=== PATIENT | male | born 1955 | race Caucasian/White ===

== ENCOUNTER 2017-03-04 23:04 | Inpatient (IN) ==
--- NOTE | 2017-03-04 23:11 | Emergency Department Note ---
Disposition Clinical Impression: Bradycardia Syncope Qualifiers: Syncope type: unspecified Qualified Code(s): R55 - Syncope and collapse Disposition: Admitted As Inpatient Condition: Undetermined Referrals: NO,PCP [Non-Partnered Physician] - Forms: ED Satisfaction Letter Time of Disposition: 00:52 Syncope HPI - General Chief Complaint: ED Syncope Stated Complaint: passed out/weak Time Seen by Provider: 03/04/17 23:07 Source: patient Mode of arrival: EMS Limitations: no limitations Nursing Notes Reviewed: Yes Vital Signs Reviewed: Yes - History of Present Illness HPI Narrative: 61-year-old male with history of psychiatric disorders on Haldol and trazodone, hypertension, arrives [facility] emergency department after having 2 syncopal episodes this evening. The patient states that he recently was started back on his Haldol as well as his trazodone and states that while in the bathroom this evening he was syncopal episode. The patient denies any prodromal symptoms associated with it. The patient denied any injury either and is not complaining of any pain. EMS was called at that time by the patient' s significant other who arrived with the patient forward and oriented. The patient was ambulated to the living room where he had another syncopal episode. The EMS stated that he immediately went out is lying on the ground and immediately woke back up without any deficits. The patient was alert and oriented 3 immediately after waking up. The patient denies any chest pain, difficulty breathing, unilateral weakness, numbness, paresthesias, fever, chills , abdominal pain. He denies any previous history of syncope. The patient is pale appearing. Pt Subjective Complaint: loss of consciousness Onset (ago): Just [employer]PUT[employer]AME [employer] Duration: second(s) Prodromal Symptoms: none Witnessed: yes - by other (Spouse) Context: at rest Injuries Sustained Associated with Event: none Current Symptoms: none, back to baseline History: none Treatments prior to arrival: IV fluids Associated trauma secondary to event: No - Related Data Home Medications Medication Instructions Recorded Confirmed Benztropine Mesylate 2 mg PO DAILY 03/03/16 03/03/16 Haloperidol 10 mg PO DAILY 03/03/16 03/03/16 Levothyroxine [Synthroid] 25 mcg PO DAILY 03/03/16 03/03/16 Simvastatin [Zocor] 20 mg PO HS 03/03/16 03/03/16 lamoTRIgine [Lamictal] 100 mg PO HS 03/03/16 03/03/16 Omeprazole 03/31/16 Omeprazole [PriLOSEC] 20 mg PO DAILY 03/31/16 03/31/16 Allergies Allergy/AdvReac Type Severity Reaction Status Date / Time No Known Allergies Allergy Verified 03/04/17 09:07 All systems ED: reviewed and negative except as stated. Constitutional: Denies: fever, chills, weakness, weight change Cardiovascular: Denies: chest pain, palpitations, dyspnea on exertion, edema, syncope Respiratory: Denies: cough, dyspnea, wheezes, hemoptysis, stridor Gastrointestinal: Denies: abdominal pain, nausea, vomiting, diarrhea, constipation, hematemesis, melena, hematochezia Genitourinary: Denies: urgency, dysuria, frequency, hematuria Musculoskeletal: Denies: back pain, neck pain, arthralgia, myalgia Integumentary: Denies: rash, abrasion, lesions Neurological: Denies: headache, weakness, numbness, paresthesias, confusion, abnormal gait, vertigo Past Medical History - Past Medical History Attestation: Yes The following information was validated with the patient. Source: patient Medical history: Reports: arthritis, GERD, hyperlipidemia Surgical history: Reports: herniorrhaphy Psychiatric history: Reports: anxiety, depression, other - Social History Smoking Status: Never smoker Smokeless Tobacco Status: No Alcohol use: Reports: none Drug use: Reports: none Physical Exam - General Limitations: no limitations General appearance: alert, in no apparent distress, other (Mildly pale) - Head Head exam: atraumatic, normocephalic, normal inspection - Eye Eye exam: Present: normal appearance, PERRL, EOMI - ENT ENT exam: normal exam, normal oropharynx, mucous membranes moist - Neck Neck exam: Present: normal inspection, full ROM, trachea midline - Chest Chest inspection: Present: normal inspection, symmetric chest wall rise - Respiratory Respiratory exam: Present: normal lung sounds bilaterally - Cardiovascular Cardiovascular exam: Present: normal rhythm, bradycardia, normal heart sounds - Abdominal Exam Abdominal exam: Present: soft, Non-Tender. Absent: tenderness, distention, guarding, rebound, rigidity - Extremities Exam Extremities exam: Present: normal inspection, full ROM. Absent: tenderness, pedal edema - Neurological Exam Neurological exam: Present: alert, oriented X3 - Skin Skin exam: Present: warm, dry, intact, normal color, pallor Course - Consultations Consultation #1: Spoke with Dr. Levin who did not feel as though the patient met criteria for transvenous pacing. Time: 01:06 Vital Signs Temperature 97 F L 03/04/17 23:06 Pulse Rate 46 03/04/17 23:06 Respiratory Rate 18 03/04/17 23:06 Blood Pressure 115/60 03/04/17 23:06 O2 Sat by Pulse Oximetry 98 03/04/17 23:06 Temperature 97 F L 03/04/17 23:06 Pulse Rate 50 03/05/17 00:29 Respiratory Rate 18 03/05/17 00:29 Blood Pressure 122/86 03/05/17 00:29 O2 Sat by Pulse Oximetry 98 03/05/17 00:29 Oxygen Delivery Oxygen Delivery Room Air Syncope - MDM Narrative Medical decision making narrative: Patient symptomatically bradycardia. Since arrival to the emergency Department heart rate is been into the mid 50s. The patient's nausea is currently controlled at this time. Workup is otherwise unremarkable. The patient has been on his blood pressure medicine which she is unable to name for years and states that he has had no previous problems like this in the past. The patient states he is resting comfortably at this time after receiving Zofran. EKG demonstrates no acute findings other than sinus bradycardia. The patient's troponin is negative. Head CT is negative. We will admit the patient to the hospital for symptomatically bradycardia as well as syncope. The patient was accepted by Dr. Clay. - Lab Data Lab results reviewed: Yes I reviewed the patient's lab results. Result diagrams: 03/04/17 23:13 03/04/17 23:13 Lab Results 03/04/17 03/04/17 03/04/17 Range/Units 23:13 23:13 23:13 WBC 6.0 (4.3-11.1) K/mcL RBC 4.18 L (4.19-5.50) M/mcL Hgb 13.2 D (12.9-16.9) g/dL Hct 38.6 (37.5-50.1) % MCV 92.3 (83.0-100.0) fL MCH 31.6 (28.0-33.3) pg MCHC 34.2 (31.6-35.5) g/dL RDW 13.1 (11.5-14.5) % Plt Count 222 (140-400) K/mcL MPV 10.0 (9.4-12.4) fL Immature Gran % 0.8 (0-4) % Seg Neutrophils % 57.2 % Lymphocytes % 28.4 % Monocytes % 11.4 % Eosinophils % 1.7 % Basophils % 0.5 % Neutrophils # 3.4 (1.6-8.9) K/mcL Lymphocytes # 1.7 (0.6-4.6) K/mcL Monocytes # 0.7 (0.0-1.3) K/mcL Eosinophils # 0.1 (0.0-0.6) K/mcL Basophils # 0.0 (0.0-0.2) K/mcL Immature Plt Fraction 4.0 (1.1-6.1) % Sodium 133 L (136-145) mEq/L Potassium 3.6 (3.5-4.5) mEq/L Chloride 102 (98-109) mEq/L Carbon Dioxide 21 (19-29) mEq/L BUN 16 (8-26) mg/dL Creatinine 1.08 (0.72-1.25) mg/dL Est GFR ( Amer) > 60 (> 60) Est GFR (Non-Af Amer) > 60 (> 60) BUN/Creatinine Ratio 15 (6-26) Glucose 144 H (70-99) mg/dL Calculated Osmolality 280 (280-300) Calcium 8.7 (8.6-10.8) mg/dL Troponin I 0.01 (0-0.03) ng/mL - Radiology Data Radiology results reviewed: Yes I reviewed the patient's radiology results. - EKG Data EKG attestation: Yes I reviewed and interpreted this EKG. EKG results narrative: Heart rate 41.3 minute. IL interval 206 ms. QTc 42 ms. Normal axis. Sinus bradycardia. No ST elevation or ST depression noted. No sinus bradycardia from EKG from 03/31/2016. No other acute changes noted. Attestation Statement - Attestation Attestation: I reviewed the resident's plan of care. In summary this is a 61-year-old male who actually is on several psychiatric medications and came to the emergency department earlier today with concern for needing refills. Ultimately this evening he had a syncopal events. He had no chest pain or weakness before or after the event. He had no focal neurological deficit on arrival. He was hemodynamically stable on arrival. He was found to have sinus bradycardia which is possibly contributing to his underlying weakness. He remains just stable heart rates in the 40s. I would proceed with admission at this point for both evaluation of syncope as well as evaluation of bradycardia. We will continue monitoring with telemetry. Biomarkers are normal. Chest x-ray shows no acute findings. There are no metabolic derangements identified. EKG intervals were checked and were normal. He denies ingestion or drug use. Stable at time of admission, proceed with admission to telemetry.
[2017-03-04 23:25] LABS: Basophils % 0.5 %; Eosinophils # 0.1 K/mcL (0.0-0.6); Eosinophils % 1.7 %; Hematocrit 38.6 % (37.5-50.1); Hemoglobin 13.2 g/dL (12.9-16.9); Immature Granulocytes % 0.8 % (0-4); Lymphocytes # 1.7 K/mcL (0.6-4.6); Lymphocytes % 28.4 %; Mean Corpuscular HGB Conc 34.2 g/dL (31.6-35.5); Mean Corpuscular Hemoglobin 31.6 pg (28.0-33.3); Mean Corpuscular Volume 92.3 fL (83.0-100.0); Monocytes # 0.7 K/mcL (0.0-1.3); Monocytes % 11.4 %; Neutrophils # 3.4 K/mcL (1.6-8.9); Platelet Count 222 K/mcL (140-400); Red Blood Count 4.18 M/mcL (4.19-5.50); Red Cell Distribution Width 13.1 % (11.5-14.5); Segmented Neutrophils % 57.2 %
[2017-03-04] MEDS ORDERED: Ondansetron 4 MG/2 ML VIAL IVP ONE (23:36)
[2017-03-04 23:38] LABS: BUN/Creatinine Ratio 15 (6-26); Blood Urea Nitrogen 16 mg/dL (8-26); Calcium 8.7 mg/dL (8.6-10.8); Carbon Dioxide 21 mEq/L (19-29); Chloride 102 mEq/L (98-109); Glucose 144 mg/dL (70-99); Osmolality,Calculated 280 (280-300); Potassium 3.6 mEq/L (3.5-4.5); Sodium 133 mEq/L (136-145); eGFR For African Americans > 60 (> 60); eGFR For Non-African Americans > 60 (> 60)
[2017-03-05] MEDS ORDERED: 0.9 % Sodium Chloride 1,000 ML IVC ONE (00:01)
[2017-03-05] MEDS ORDERED: Naloxone 0.4 MG/ML INJ IVP PRN (01:58)
--- NOTE | 2017-03-05 02:13 | Internal Med History&Physical ---
Date of Encounter: 03/05/17 Time of Encounter: 01:40 Assessment and Plan (1) Bradycardia Current visit: Yes Status: Acute Symptomatic Bradycardia Currently HR between 50s-60s Asymptomatic at this time no recurrent syncopal episodes reported since hospitalization f/u 2D echo, carotid doppler cardiology evaluation requested continue tele monitoring (2) Syncope Current visit: Yes Status: Acute Likely secondary to symptomatic bradycardia will continue to monitor plan as listed above Qualifiers: Syncope type: unspecified Qualified Code(s): R55 - Syncope and collapse (3) Thyroid disease Current visit: Yes Status: Chronic continue home medications after verification f/u thyroid studies (4) HLD (hyperlipidemia) Current visit: Yes Status: Chronic Qualifiers: Hyperlipidemia type: unspecified Qualified Code(s): E78.5 - Hyperlipidemia , unspecified (5) Schizophrenia Current visit: No Status: Chronic resume home medications after verification Qualifiers: Schizophrenia type: paranoid schizophrenia Qualified Code(s): F20.0 - Paranoid schizophrenia (6) DVT prophylaxis Current visit: Yes Status: Acute heparin SQ Internal Medicine - H&P: HPI Chief complaint: syncope Admitted From: Home Plans for Post Hospital Care: Home History of present illness: Mr. Chavez is a 61 year old male with PMH of hyperlipidemia, thyroid disease , Paranoid schizophrenia who is brought to the ER s/p syncopal episode. Patient is seen and examined with family present at bedside. Patient is AAO x 3, however given his psychiatrical illness, information was verified with the family. As per family, patient was in his usual state of health and got up to the bathroom and had a syncopal episode with him falling to the ground. The found him on the floor and he was not able to wake up due to which she called EMS. EMS came and lifted the patient to the chair during which patient had another syncopal episode. He was also noted to have a HR of 40 at the time. EKG from a year ago reported LVH with NSR with 66 bpm. As per , patient has history of syncopal episodes in the past but nothing lasting as long as they did this time. In the ER patient's EKG showed sinus bradycardia with 41bpm. He is currently asymptomatic and resting comfortably in bed. Denies any headache, chest pain, dizziness, sob, abd pain, n/v, fever, or chills. As per , patient has been noncompliant with his antipsychotic medications due to which his behavior has been not at his usual baseline. Past Med Surg Social Fam HX - Past Medical History Medical history: arthritis, GERD, hyperlipidemia Psychiatric history: anxiety, depression, other - Past Surgical History Surgical History: herniorrhaphy - Social History Smoking Status: Never smoker Smokeless Tobacco Status: No Alcohol use: none Drug use: none Internal Medicine - H&P: Meds Benztropine Mesylate 2 mg PO DAILY 03/03/16 [History] Haloperidol 10 mg PO DAILY 03/03/16 [History] Levothyroxine [Synthroid] 25 mcg PO DAILY 03/03/16 [History] Simvastatin [Zocor] 20 mg PO HS 03/03/16 [History] lamoTRIgine [Lamictal] 100 mg PO HS 03/03/16 [History] Omeprazole 03/31/16 [History] Omeprazole [PriLOSEC] 20 mg PO DAILY 03/31/16 [History] Allergies No Known Allergies Allergy (Verified 03/04/17 09:07) All Systems PM: A 10-system review of systems was performed and is negative for pertinent findings except as documented above in the HPI. - Constitutional Constitutional: as per HPI - Constitutional Vitals: Temp Pulse Resp BP Pulse Ox 0 F L 50 18 122/59 98 03/05/17 01:20 03/05/17 00:29 03/05/17 01:20 03/05/17 01:20 03/05/17 00:29 General appearance: Present: cooperative, A&O X 3, no acute distress, answers questions appropriately - Head Head exam: Present: atraumatic, normocephalic - Eye Eye exam: Present: normal appearance, conjuntiva pink, sclera anicteric - Respiratory Respiratory exam: Present: CTAB. Absent: accessory muscle use, rales, rhonchi, wheezes - Cardiovascular Cardiovascular exam: Present: bradycardia, +S1, +S2. Absent: diastolic murmur, systolic murmur - GI/Abdominal GI/Abdominal exam: Present: normal bowel sounds, soft, no peritoneal signs. Absent: distended, tenderness - Extremities Exam Extremities exam: Present: warm, radial pulses palpable and symetrical. Absent : calf tenderness, cyanotic, pedal edema - Neurological Exam Neurological exam: Present: alert, oriented X3 - Psychiatric Psychiatric exam: Present: normal affect, normal mood Internal Med - H&P Results - Labs CBC & Chem 7: 03/04/17 23:13 03/04/17 23:13
[2017-03-05 03:40] LABS: Hemoglobin A1C 5.2 %
[2017-03-05 03:45] LABS: Basophils % 0.4 %; Eosinophils % 0.1 %; Hematocrit 39.9 % (37.5-50.1); Hemoglobin 13.1 g/dL (12.9-16.9); Immature Granulocytes % 1.4 % (0-4); Lymphocytes # 0.8 K/mcL (0.6-4.6); Lymphocytes % 11.3 %; Mean Corpuscular HGB Conc 32.8 g/dL (31.6-35.5); Mean Corpuscular Hemoglobin 30.6 pg (28.0-33.3); Mean Corpuscular Volume 93.2 fL (83.0-100.0); Mean Platelet Volume 10.1 fL (9.4-12.4); Monocytes # 0.5 K/mcL (0.0-1.3); Monocytes % 6.4 %; Neutrophils # 5.7 K/mcL (1.6-8.9); Platelet Count 232 K/mcL (140-400); Red Blood Count 4.28 M/mcL (4.19-5.50); Red Cell Distribution Width 12.9 % (11.5-14.5); Segmented Neutrophils % 80.4 %
[2017-03-05 03:50] LABS: BUN/Creatinine Ratio 15 (6-26); Blood Urea Nitrogen 14 mg/dL (8-26); Calcium 8.4 mg/dL (8.6-10.8); Carbon Dioxide 23 mEq/L (19-29); Chloride 107 mEq/L (98-109); Chol/HDL Ratio 3.9 (0-4.9); Cholesterol 116 mg/dL (< 200); Glucose 117 mg/dL (70-99); HDL Cholesterol 30 mg/dL (40-59); LDL Cholesterol,Calculated 75 mg/dL (0-99); Magnesium 1.8 mg/dL (1.6-2.6); Osmolality,Calculated 284 (280-300); Phosphorous 2.5 mg/dL (2.3-4.7); Potassium 4.5 mEq/L (3.5-4.5); Sodium 136 mEq/L (136-145); Triglycerides 56 mg/dL (< 150); eGFR For African Americans > 60 (> 60); eGFR For Non-African Americans > 60 (> 60)
[2017-03-05 04:13] LABS: Thyroid Stimulating Hormone 0.667 mcIU/mL (0.350-4.840)
[2017-03-05] MEDS: *HR* Heparin 5,000 UNIT/ML VIAL SQ SCH ×3 (06:11→20:57)
[2017-03-05] MEDS: Levothyroxine 25 MCG TABLET PO SCH (08:46)
--- NOTE | 2017-03-05 09:20 | Cardiology Consult Note ---
Date of Encounter: 03/05/17 Time of Encounter: 09:17 Assessment and Plan (1) Syncope Current Visit: Yes Status: Acute Syncopal episode x 2 yesterday evening. HR found to be 41 on presentation, since improved. 24 hr tele AVG HR 57 with lowest HR 46 during nocturnal hours. Echo and carotid dopplers pending. Pt currently asymptomatic. Recommend checking orthostatic vitals. BP has been stable. If no significant findings on echo, anticipate sign off. Avoid AV rambo blockers. Pt was not on any at home. Qualifiers: Syncope type: unspecified Qualified Code(s): R55 - Syncope and collapse (2) Bradycardia Current Visit: Yes Status: Acute As above, HR 41 on presentation, since improved. 24 hour tele AVG HR 57, lowest 46. Mild bradycardia. No PPM warranted at this time. Echo pending. K 4.5, Mag 1.6, TSH 0.667. Discussion w patient/family: The assessment and plan as outlined above was discussed with the patient and/or family members who expressed understanding and agreement. All questions were answered. Thank you for involving us in the care of your patient. Please call with any questions. I will discuss all the above with Dr. Levin and make changes as necessary. History of Present Illness Consult date: 03/05/17 Requesting physician: Ban King Consult reason: syncope, bradycardia Chief complaint: syncope History of present illness: Mr. Chavez is a 61 year old male with PMH of hyperlipidemia, thyroid disease , Paranoid schizophrenia who was brought to the ER s/p syncopal episode. No family are currently at bedside and it is difficult to obtain information from pt. Information obtained from hospitalist H&P. As per report, patient was in his usual state of health and got up to the bathroom and had a syncopal episode with him falling to the ground. The found him on the floor and he was not able to wake up due to which she called EMS. EMS came and lifted the patient to the chair during which patient had another syncopal episode. He was also noted to have a HR of 40 at the time. In the ER patient's EKG showed sinus bradycardia with 41bpm. He is currently asymptomatic and resting comfortably in bed. Denies any headache, chest pain, dizziness, sob, abd pain, n/v, fever, or chills. Per report, patient has been noncompliant with his antipsychotic medications due to which his behavior has been not at his usual baseline. 24hr tele AVG HR 57 with lowest HR on tele 46 during nocturnal hours. No significant pauses. Past Med Surg Social Fam HX - Past Medical History Medical history: arthritis, GERD, hyperlipidemia Psychiatric history: anxiety, depression, other - Past Surgical History Surgical History: herniorrhaphy - Social History Smoking Status: Never smoker Smokeless Tobacco Status: No Alcohol use: none Drug use: none - Family History Father Hx Family Cardiac Disorders: Yes (mi) Medications and Allergies Haloperidol 10 mg PO HS 03/03/16 [History] Levothyroxine [Synthroid] 25 mcg PO DAILY 03/03/16 [History] Simvastatin [Zocor] 20 mg PO HS 03/03/16 [History] Omeprazole [PriLOSEC] 20 mg PO DAILY 03/31/16 [History] Donepezil HCl [Aricept] 10 mg PO HS 03/05/17 [History] Lisinopril [Zestril] 5 mg PO DAILY 03/05/17 [History] Trazodone HCl 300 mg PO HS 03/05/17 [History] Allergies No Known Allergies Allergy (Verified 03/04/17 09:07) All Systems Review: A 10-system review of systems was performed and is negative for pertinent findings except as documented above in the HPI. - Cardiovascular Cardiovascular: as per HPI, syncope Physical Examination Vital Signs, Last 4 Hours Temp Pulse Resp BP Pulse Ox 03/05/17 07:10 97.9 F 61 15 109/70 97 Vital Signs Temp Pulse Resp BP Pulse Ox 03/05/17 07:10 97.9 F 61 15 109/70 97 03/05/17 01:45 98.6 F 66 16 121/58 93 03/05/17 01:20 0 F L 18 122/59 03/05/17 00:29 50 18 122/86 98 03/04/17 23:53 50 18 123/66 100 03/04/17 23:06 97 F L 46 18 115/60 98 Intake and Output 03/04/17 03/05/17 03/05/17 23:59 07:59 15:59 Intake Total 1000 / 1000 Output Total 925 / 925 Balance 75 / 75 Intake: IV Fluids 1000 / 1000 0.9 % Sodium Chloride 1, 1000 / 1000 000 ML @ 3750 mls/hr IVC .Q16M ONE Rx#:[id number] Output: Urine 925 / 925 Other: Weight 87.997 kg 87.09 kg Patient Weight 03/05/17 23:59 Weight 87.09 kg General: Conversant, No Apparent Distress HEENT: Atraumatic, Normocephaly, Mucus Membranes Moist Neck: No JVD, Normal carotid pulses Cardiac: Reg Rate and Rhythm, Normal S1 and S2, No Murmur Lungs: Normal Breath Sounds, No Wheeze, Rales, Rhonchi Neuro: Alert and responsive, No focal deficits noted Abdomen: Soft, Non-Tender Skin: No rashes noted on visualized skin Musculoskeletal: No Chest Wall Tenderness Extremities: No Clubbing, No Cyanosis, No Edema, Normal Pulses Results 03/05/17 03:09 03/05/17 03:09 Lab Results 03/05/17 03/05/17 03:09 03:09 WBC 7.1 Hgb 13.1 Hct 39.9 Plt Count 232 Sodium 136 Potassium 4.5 Chloride 107 Carbon Dioxide 23 BUN 14 Creatinine 0.94 Glucose 117 H Calcium 8.4 L Magnesium 1.8 TSH 0.667 Short CBC 03/05/17 03/04/17 Range/Units 03:09 23:13 WBC 7.1 6.0 (4.3-11.1) K/mcL Hgb 13.1 13.2 D (12.9-16.9) g/dL Hct 39.9 38.6 (37.5-50.1) % Plt Count 232 222 (140-400) K/mcL Neutrophils # 5.7 3.4 (1.6-8.9) K/mcL BMP 03/05/17 03/04/17 Range/Units 03:09 23:13 Sodium 136 133 L (136-145) mEq/L Potassium 4.5 3.6 (3.5-4.5) mEq/L Chloride 107 102 (98-109) mEq/L Carbon Dioxide 23 21 (19-29) mEq/L BUN 14 16 (8-26) mg/dL Creatinine 0.94 1.08 (0.72-1.25) mg/dL Glucose 117 H 144 H (70-99) mg/dL Calcium 8.4 L 8.7 (8.6-10.8) mg/dL Cardiac Enzymes 03/04/17 Range/Units 23:13 Troponin I 0.01 (0-0.03) ng/mL Impressions Chest X-Ray 03/04/17 23:07 IMPRESSION: No acute cardiopulmonary disease. D/ / Roma Abdalla MD / Roma Abdalla MD Interpreting Provider: Roma Abdalla MD Head CT 03/04/17 23:07 IMPRESSION: No acute intracranial abnormality. D/ : / 03/05/2017 07:10:33 Roma Abdalla MD / [facility] Interpreting Provider: Roma Abdalla MD Active Medications Donepezil HCl (Aricept) 10 mg PO HS [facility] Stop: 09/04/17 21:01 Haloperidol (Haldol) 10 mg PO HS [facility] Stop: 09/04/17 21:01 Heparin Sodium (Porcine) (Heparin) 5,000 unit SQ Q8HCO [facility] Stop: 09/04/17 06:01 Last Admin: 03/05/17 06:11 Dose: 5,000 unit Levothyroxine Sodium (Synthroid) 25 mcg PO DAILY@0630 [facility] Stop: 09/04/17 09:01 Last Admin: 03/05/17 08:46 Dose: 25 mcg Lisinopril (Zestril) 5 mg PO DAILY [facility] PRN Reason: Protocol Stop: 09/04/17 09:01 Last Admin: 03/05/17 08:45 Dose: 5 mg Naloxone HCl (Narcan) 0.4 mg IVP Q2MIN PRN PRN Reason: Opioid Reversal Stop: 09/04/17 01:59 Omeprazole (Prilosec) 20 mg PO DAILY@0630 [facility] PRN Reason: Protocol Stop: 09/04/17 09:01 Last Admin: 03/05/17 08:45 Dose: 20 mg Ondansetron HCl (Zofran) 4 mg IVP Q6HR PRN PRN Reason: Nausea And Vomiting Stop: 09/04/17 01:59 Simvastatin (Zocor) 20 mg PO HS [facility] PRN Reason: Protocol Stop: 09/04/17 21:01 Trazodone HCl (Trazodone) 300 mg PO HS [facility] Stop: 09/04/17 21:01 - Imaging and Cardiology Echo: pending - EKG Interpretation EKG results cardiology: personally reviewed (Sinus rich, rate 41), other (24 hr tele AVG HR 57, SR, lowest HR 46.) Consult Discharge Plan - Plan Referrals: Muna,Roger Ortiz MD [Primary Care Provider] -
[2017-03-05] MEDS: Ondansetron 4 MG/2 ML VIAL IVP PRN ×2 (12:50→18:00)
--- NOTE | 2017-03-05 15:33 | Event Note ---
Date of Encounter: 03/05/17 Time of Encounter: 10:30 Patient seen and examined. On examination, patient sitting upright in bed conversing with his . Patient stating he has not been eating for the past 2 weeks and his states that he only eats pudding. Patient's states that he has been off all of his psychiatric medications for the last 5 months secondary to losing his psychiatrist who left the practice to move on to another practice. His states that she tried to have his medications filled by the primary care provider when she desperately try to get him into new psychiatrist however his primary care provider refused and the patient has been off his medications for 5 months. Patient is now under the psychiatrist in [place] name Calvin Andersen and saw him on 03/03/17 and he was placed back on his medications. His medications have not been given enough time to work at this point however the patient had a syncopal episode that occurred approximately 15-20 minutes after he is taking 3 of his medications that help him sleep including Haldol. This was the first time his body had had these 3 medications at the same time in 5 months and likely precipitated the syncopal event. Chest x-ray negative. Head CT negative. Patient was noted to be bradycardic so cardiology was brought on board. Echocardiogram unremarkable with normal ejection fraction and no significant valvular issues. Cardiology has cleared him for outpatient follow-up. He is not on any beta blockers. Patient is very concerned at this time because he was incarcerated last week. He and his report that she had a bottle of bleach that she was taking down to the basement to help clean but the patient was very scared that the basement was not ventilated so he was trying to take the bleach away from her and at some point, the police that showed up and took the patient to [facility] where he stayed overnight. His states that he is not facing [facility] time and reassurance has been proffered. Overall, patient is alert and oriented 3 and quite calm. His mood and affect are stable. We will observe him overnight and continue his regular home medications including the 3 sedating medications that his psychiatrist put him back on. If he does well overnight, likely discharge tomorrow morning pending clinical outcomes. ITS Impressions Chest X-Ray 03/04/17 23:07 IMPRESSION: No acute cardiopulmonary disease. D/ / Roma Abdalla MD / Roma Abdalla MD Interpreting Provider: Roma Abdalla MD Head CT 03/04/17 23:07 IMPRESSION: No acute intracranial abnormality. D/ /05/2017 07:10:33 Roma Abdalla MD / [facility] Interpreting Provider: Roma Abdalla MD Echocardiogram impressions: Sinus bradycardia. Heart rate in the 50s. LVEF 60% . Normal LV chamber size, wall thickness and function. Mild left ventricular diastolic dysfunction. Mildly dilated right ventricle with normal-appearing function. No evidence of pulmonary hypertension. No significant valvular dysfunction.
--- NOTE | 2017-03-05 16:34 | Carotid Imaging Report ---
Carotid Duplex Patient Name:Markel Chavez Order Number:[id number] Procedure Date:03/05/2017 Date:1955ge:61 yrs Gender:Male Rt.BP:107 / 70 mmHgHeart Rate: Location:[facility] Room #: 3B43 Tube Winder:Amanda Lewis, ANGELICA Referring MD:Ban King MD shoe trimmer:Roger Toro MD Reading MD:Ayo Clark MD Primary Indications:Syncope and collapse Risk Factors Yes/No Hypercholesterolemia Yes Impressions: Findings: Bilateral carotid system is essentially normal. Recommendations: Preliminary noted in pt EMR. Findings Carotid Duplex: Right: The right proximal common carotid artery has a PSV of 104 cm/s and a EDV of 18 cm/s. The right mid common carotid artery has a PSV of 88 cm/s and a EDV of 19 cm/s. The right distal common carotid artery has a PSV of 87 cm/s and a EDV of 16 cm/s. The right bifurcation has a PSV of 71 cm/s and a EDV of 19 cm/s. The right proximal internal carotid artery has a PSV of 106 cm/s and a EDV of 20 cm/s. The right mid internal carotid artery has a PSV of 75 cm/s and a EDV of 28 cm/s. The right distal internal carotid artery has a PSV of 73 cm/s and a EDV of 27 cm/s. The right eca has a PSV of 135 cm/s and a EDV of 16 cm/s. The right vertebral artery has a PSV of 61 cm/s and a EDV of 13 cm/s. There is antegrade spectral Doppler flow patterns. Left: The left proximal common carotid artery has a PSV of 108 cm/s and a EDV of 20 cm/s. The left mid common carotid artery has a PSV of 96 cm/s and a EDV of 19 cm/s. The left distal common carotid artery has a PSV of 86 cm/s and a EDV of 22 cm/s. The left bifurcation has a PSV of 77 cm/s and a EDV of 22 cm/s. The left proximal internal carotid artery has a PSV of 100 cm/s and a EDV of 30 cm/s. The left mid internal carotid artery has a PSV of 113 cm/s and a EDV of 38 cm/s. The left distal internal carotid artery has a PSV of 113 cm/s and a EDV of 40 cm/s. The left eca has a PSV of 162 cm/s and a EDV of 13 cm/s. The left vertebral artery has a PSV of 95 cm/s and a EDV of 23 cm/s. There is antegrade spectral Doppler flow patterns. Prior Study: No prior study available for comparison. Carotid Results Right PSV EDV Assessment Proximal CCA 104 18 Mid CCA 88 19 Distal CCA 87 16 Bifurcation 71 19 Proximal ICA 106 20 Mid ICA 75 28 Distal ICA 73 27 ECA 135 16 Vertebral Artery 61 13 Antegrade Flow Left PSV EDV Assessment Proximal CCA 108 20 Mid CCA 96 19 Distal CCA 86 22 Bifurcation 77 22 Proximal ICA 100 30 Mid ICA 113 38 Distal ICA 113 40 ECA 162 13 Vertebral Artery 95 23 Antegrade Flow Ratio's Right ICA/CCA Ratio: 1.20 ICA/CCA Values: 106/88 Left ICA/CCA Ratio: 1.17 ICA/CCA Values: 113/96 Updated by Ayo Clark MD on 03/05/2017 4:30:06 PM electronically signed on 03/05/2017 4:30:28 PM with status of Final
[2017-03-05] MEDS: traZODone 50 MG TABLET PO SCH (20:56)
[2017-03-06] MEDS: Levothyroxine 25 MCG TABLET PO SCH (05:46)
[2017-03-06] MEDS: *HR* Heparin 5,000 UNIT/ML VIAL SQ SCH ×3 (05:47→21:11)
[2017-03-06] MEDS: Ondansetron 4 MG/2 ML VIAL IVP PRN (09:41)
--- NOTE | 2017-03-06 11:50 | Electrocardiograph Report ---
[place] [id number] Test Date: 2017-03-04 Pat Name: Markel Chavez Department: 105 Room: 3B43 Gender: M [employer]or: KURTIS : 1955 Requested By: Jeromy Bernal Order Number: [id number] Reading MD: Cordell Ro MD Measurements Intervals [place] Rate: 41 P: 29 IN: 206 QRS: 25 QRSD: 99 T: 55 QT: 467 QTc: 402 Interpretive Statements SINUS BRADYCARDIA WITH FIRST DEGREE AV BLOCK Electronically Signed On 03-06-2017 11:48:50 EDT by Cordell Ro MD
--- NOTE | 2017-03-06 12:37 | Internal Med Progress Note ---
Date of Encounter: 03/06/17 Time of Encounter: 09:30 - Assessment and plan (1) Schizophrenia Current Visit: No Status: Chronic Assessment and plan: Patient remains with flat affect but continues to deny suicidal ideations. Patient's states that he has been off all of his psychiatric medications for the last 5 months secondary to losing his psychiatrist who left the practice to move on to another practice. His states that she tried to have his medications filled by the primary care provider when she desperately try to get him into new psychiatrist however his primary care provider refused and the patient has been off his medications for 5 months. As a result, he has not been eating well. Since admision, he continues with poor PO intake, but it is improving slightly. Patient is now under the psychiatrist in [place] name Calvin Andersen and saw him on 03/03/17 and he was placed back on his medications. He had the syncopal episode occurred approximately 15-20 minutes after he is taking 3 of his medications that help him sleep including Haldol. This was the first time his body had had these 3 medications at the same time in 5 months and likely precipitated the syncopal event. Chest x-ray negative. Head CT negative. Patient was noted to be bradycardic so cardiology was brought on board. Echocardiogram unremarkable with normal ejection fraction and no significant valvular issues. Cardiology has cleared him for outpatient follow-up. Patient is very concerned at this time because he was incarcerated last week. He and his report that she had a bottle of bleach that she was taking down to the basement to help clean but the patient was very scared that the basement was not ventilated so he was trying to take the bleach away from her and at some point, the police that showed up and took the patient to senior care where he stayed overnight. His states that he is not facing senior care time and reassurance has been proffered. Overall, patient is alert and oriented 3 and quite calm. His mood and affect are stable. Medically, he is clear now that he is starting to eat a bit more. Will discuss with his when she arrives if she feels safe taking him home. She stated yesterday that he has never hurt her in the past and states they have been for 30 years. Unfortunately, it could be 2-4 weeks before his medications really take effect. Patient and are aware. There is no indication for inpatient psychiatric consultation. ITS Impressions Chest X-Ray 03/04/17 23:07 IMPRESSION: No acute cardiopulmonary disease. D/ / Roma Abdalla MD / Roma Abdalla MD Interpreting Provider: Roma Abdalla MD Head CT 03/04/17 23:07 IMPRESSION: No acute intracranial abnormality. D/ : / 03/05/2017 07:10:33 Roma Abdalla MD / [facility] Interpreting Provider: Roma Abdalla MD Echocardiogram impressions: Sinus bradycardia. Heart rate in the 50s. LVEF 60% . Normal LV chamber size, wall thickness and function. Mild left ventricular diastolic dysfunction. Mildly dilated right ventricle with normal-appearing function. No evidence of pulmonary hypertension. No significant valvular dysfunction. Carotid duplex impressions: Findings: Bilateral carotid system is essentially normal. Qualifiers: Schizophrenia type: paranoid schizophrenia Qualified Code(s): F20.0 - Paranoid schizophrenia (2) Syncope Current Visit: Yes Status: Acute Assessment and plan: See prior note for schizophrenia Qualifiers: Syncope type: unspecified Qualified Code(s): R55 - Syncope and collapse (3) Bradycardia Current Visit: Yes Status: Resolved (4) Thyroid disease Current Visit: Yes Status: Chronic Assessment and plan: TSH, free T4, total T3 normal (5) HLD (hyperlipidemia) Current Visit: Yes Status: Chronic Assessment and plan: Lipid panel unremarkable. Recommend continue statin and low-cholesterol diet Qualifiers: Hyperlipidemia type: unspecified Qualified Code(s): E78.5 - Hyperlipidemia , unspecified (6) DVT prophylaxis Current Visit: Yes Status: Acute Assessment and plan: Subcutaneous heparin - Subjective Interval history: Patient seen and examined. On examination, patient is sitting upright in bed currently staring at his breakfast. He states he was able to eat his banana but not did not eat anything else. States he slept relatively well last night. He was refusing to answer other questions. - Constitutional Vitals: Temp Pulse Resp BP Pulse Ox 98.0 F 59 16 130/77 95 03/06/17 11:42 03/06/17 11:42 03/06/17 11:42 03/06/17 11:42 03/06/17 11:42 General appearance: Present: cooperative, A&O X 3, pleasant, no acute distress, answers questions appropriately - Head Head exam: Present: atraumatic, normocephalic - Eye Eye exam: Present: EOMI, PERRL, conjuntiva pink, sclera anicteric Pupils: Present: PERRL - Neck Neck exam general surgery: Present: supple, trachea midline. Absent: lymphadenopathy - Respiratory Respiratory exam: Present: CTAB. Absent: accessory muscle use, rales, respiratory distress, rhonchi, wheezes - Cardiovascular Cardiovascular exam: Present: RRR, +S1, +S2. Absent: diastolic murmur, gallop, rubs, systolic murmur - GI/Abdominal GI/Abdominal exam: Present: normal bowel sounds, soft, tenderness (diffuse), no peritoneal signs. Absent: distended - Extremities Exam Extremities exam: Present: warm, radial pulses palpable and symetrical. Absent : calf tenderness, cyanotic, pedal edema - Neurological Exam Neurological exam: Present: alert, CN II-XII intact, oriented X3, no focal deficits, strengths equal and symetr throughout. Absent: pronater drift, facial droop, speech deficit - Psychiatric Psychiatric exam: Present: flat affect. Absent: suicidal ideation - Skin Skin exam: Present: dry, intact, pallor, warm Internal Medicine: Result - Labs CBC & Chem 7: 03/05/17 03:09 03/05/17 03:09 Consult Discharge Plan - Plan Referrals: Muna,Roger Ortiz MD [Primary Care Provider] -
[2017-03-06] MEDS: traZODone 50 MG TABLET PO SCH (21:11)
[2017-03-07] MEDS: *HR* Heparin 5,000 UNIT/ML VIAL SQ SCH ×3 (05:59→22:22)
[2017-03-07] MEDS: Levothyroxine 25 MCG TABLET PO SCH (05:59)
--- NOTE | 2017-03-07 12:06 | Internal Med Progress Note ---
Date of Encounter: 03/07/17 Time of Encounter: 12:04 - Assessment and plan (1) Schizophrenia Current Visit: Yes Status: Chronic Qualifiers: Schizophrenia type: paranoid schizophrenia Qualified Code(s): F20.0 - Paranoid schizophrenia (2) Syncope Current Visit: Yes Status: Acute Qualifiers: Syncope type: unspecified Qualified Code(s): R55 - Syncope and collapse (3) Bradycardia Current Visit: Yes Status: Resolved (4) Thyroid disease Current Visit: Yes Status: Chronic (5) DVT prophylaxis Current Visit: Yes Status: Acute - Subjective Interval history: Mr. Markel Chavez is a 61-year-old male was brought in for recurrent syncopal episode which lasted for 15-20 seconds. He was noted to be bradycardic in the range of 40s and 50s. Apparently he was off his antipsychotic medicines which she takes for schizophrenia for almost 5 months and those have been recently restarted. Cardiology has seen the patient. His echo carotid ultrasound CT head are unremarkable and cardiology has recommended to simply observe him and keep him off negative inotropic medication. He has a psychiatrist as outpatient with whom he follows now. We offered patient to be discharged however patient has concerns. She thinks he is quite delusional has been complaining of people visiting him which do not excess. She feels that to his not talking much and get irritated easily. I asked her if any of those symptoms or new and it appears to me that there most of the problems he has have been exist for last 20 years. In any case my impression is that is not very willing to take him home though it does not appear that patient is posing any threat to himself or anyone else. I tried to explain her that since her his antipsychotic medication had been restarted it may take some time for him to improve but as she continued to insist will involve psychiatry tomorrow to see if he can arrange an inpatient psych rehabilitation for him. - Constitutional Vitals: Temp Pulse Resp BP Pulse Ox 98.3 F 73 16 139/77 93 03/07/17 11:44 03/07/17 11:44 03/07/17 11:44 03/07/17 11:44 03/07/17 11:44 General appearance: Present: cooperative, A&O X 3, pleasant, no acute distress, answers questions appropriately - Head Head exam: Present: atraumatic, normocephalic - Eye Eye exam: Present: PERRL, conjuntiva pink, sclera anicteric Pupils: Present: PERRL - Neck Neck exam general surgery: Present: supple, trachea midline. Absent: lymphadenopathy - Respiratory Respiratory exam: Present: CTAB. Absent: accessory muscle use, rales, rhonchi, wheezes - Cardiovascular Cardiovascular exam: Present: RRR, +S1, +S2. Absent: diastolic murmur, gallop, rubs, systolic murmur - GI/Abdominal GI/Abdominal exam: Present: normal bowel sounds, soft, no peritoneal signs. Absent: distended, tenderness - Extremities Exam Extremities exam: Present: warm, radial pulses palpable and symetrical. Absent : calf tenderness, cyanotic, pedal edema - Neurological Exam Neurological exam: Present: CN II-XII intact, oriented X3, no focal deficits. Absent: pronater drift, facial droop, speech deficit - Skin Skin exam: Present: dry, intact Internal Medicine: Result - Labs CBC & Chem 7: 03/05/17 03:09 03/05/17 03:09 Consult Discharge Plan - Plan Referrals: lisbeth,Roger Ortiz MD [Primary Care Provider] -
[2017-03-07] MEDS: traZODone 50 MG TABLET PO SCH (19:55)
[2017-03-08] MEDS: *HR* Heparin 5,000 UNIT/ML VIAL SQ SCH ×3 (06:10→20:26)
[2017-03-08] MEDS: Levothyroxine 25 MCG TABLET PO SCH (06:15)
--- NOTE | 2017-03-08 12:28 | Consult Note ---
Date of Encounter: 03/08/17 Time of Encounter: 12:10 Assessment & Recommendation (1) Schizophrenia Current visit: Yes Status: Chronic Assessment & Recommendation: We will need to follow up with about what her long-term concerns are with the patient. Outpatient medications may have been restarted at too high of a dose. Recommend decreasing trazodone to 50 mg at bedtime. Recommend decreasing Haldol to 5 mg by mouth daily at bedtime. Continue to monitor for side effects. Thank you for consultation and we will continue to follow while patient remains hospitalized. Qualifiers: Schizophrenia type: paranoid schizophrenia Qualified Code(s): F20.0 - Paranoid schizophrenia History of Present Illness Patient: new to practice Requesting Physician: Candi Velazquez Reason for consult: history of schizophrenia History of present illness: Mr. Chavez is a 61 year old male with a history of schizophrenia who was admitted to the medical floor for syncopal episodes and bradycardia. Patient had been seen at the local [facility] for many years and the medications he was taking were abruptly stopped when his provider left that practice and he was unable to see a doctor there any longer. Apparently, PCP refused to write psych meds. He was recently restarted on meds but the dosages may have been too high because patient is now somewhat sedated. Patient is currently taking Haldol 10 mg daily at bedtime and trazodone 300 mg by mouth daily at bedtime. Patient denies suicidal or homicidal ideation, intent, or plan. Patient denies auditory or visual hallucinations and he denies delusions. He is somewhat groggy and it is difficult for him to answer questions. Staff states that he was more alert yesterday before psych meds were restarted at higher dosages. apparently has some concerns about his mental state. I did attempt to call patient's with emergency contact number listed in chart but there was no answer. Reviewed previous hospitalization from 2014 as well as outpatient records from [facility]. Patient was seen at [facility] prior to 2 and them losing providers. Patient does have a history of delusional thoughts and thinking that things are poison. He may also have been voicing some of his chronic delusions during a recent ER visit. He denies these now. CC: Candi Velazquez Past Med Surg Social Fam HX - Past Medical History Medical history: arthritis, GERD, hyperlipidemia - Past Psychiatric History Psychiatric history: Reports: schizophrenia Past psychiatric history details: Patient was unable to tell this provider if he had been admitted before. Review of outpatient records and previous inpatient records indicate that patient has had one admission at [facility] in 2013 and one other previous admission almost 24 years prior to this for psychosis as well. Family psychiatric history: Yes Family Psychiatric History Details: Per previous record, father have attempted suicide but did not complete suicide. Family History of Suicide: Attempted (Father) - Past Surgical History Surgical History: herniorrhaphy - Social History Smoking Status: Never smoker Smokeless Tobacco Status: No Alcohol use: none Drug use: none - Family History Father Hx Family Cardiac Disorders: Yes (mi) Medications & Allergies Donepezil HCl [Aricept] 10 mg PO HS 03/05/17 [History] Lisinopril [Zestril] 5 mg PO DAILY 03/05/17 [History] Trazodone HCl 300 mg PO HS 03/05/17 [History] Benztropine Mesylate 2 mg PO HS 03/06/17 [History] Oxybutynin [Ditropan] 5 mg PO HS 03/06/17 [History] lamoTRIgine [Lamictal] 100 mg PO HS 03/06/17 [History] Allergies No Known Allergies Allergy (Verified 03/04/17 09:07) Review of Systems ROS limited: due to patient condition Psychiatric: Reports: abnormal sleep pattern, confusion. Denies: suicidal ideation, auditory hallucinations Mental Status Exam Patient orientation: Yes Person Level of alertness: Sedated Patient appearance: Appropriate Behavior: distractible Psychomotor activity: Slowed Eye contact: Fleeting Contact Mood description: Euthymic/stable Affect description: other (Patient is very sleepy) Speech pattern: Slowed Speech volume: Soft/Quiet Thought process: [place] Thought content: No Suicidal ideation, No Homicidal ideation Perceptual disturbances: No Reacting to internal stimuli Attention span: Unable to Focus, Unable to Sustain Attention Memory description: Immediate Impaired, Recent Impaired, Remote Impaired Patient reliability: Not Reliable Historian Intelligence estimate: Below Average Judgment: Limited Insight: Minimal Results - Vital Signs Vital signs: Temp Pulse Resp BP Pulse Ox 98.4 F 79 16 123/77 97 03/08/17 11:28 03/08/17 11:28 03/08/17 11:28 03/08/17 11:28 03/08/17 11:28 - Labs Labs: Laboratory Last Values WBC 7.1 K/mcL (4.3-11.1) 03/05/17 03:09 RBC 4.28 M/mcL (4.19-5.50) 03/05/17 03:09 Hgb 13.1 g/dL (12.9-16.9) 03/05/17 03:09 Hct 39.9 % (37.5-50.1) 03/05/17 03:09 MCV 93.2 fL (83.0-100.0) 03/05/17 03:09 MCH 30.6 pg (28.0-33.3) 03/05/17 03:09 MCHC 32.8 g/dL (31.6-35.5) 03/05/17 03:09 RDW 12.9 % (11.5-14.5) 03/05/17 03:09 Plt Count 232 K/mcL (140-400) 03/05/17 03:09 MPV 10.1 fL (9.4-12.4) 03/05/17 03:09 Immature Gran % 1.4 % (0-4) 03/05/17 03:09 Seg Neutrophils % 80.4 % 03/05/17 03:09 Lymphocytes % 11.3 % 03/05/17 03:09 Monocytes % 6.4 % 03/05/17 03:09 Eosinophils % 0.1 % 03/05/17 03:09 Basophils % 0.4 % 03/05/17 03:09 Neutrophils # 5.7 K/mcL (1.6-8.9) 03/05/17 03:09 Lymphocytes # 0.8 K/mcL (0.6-4.6) 03/05/17 03:09 Monocytes # 0.5 K/mcL (0.0-1.3) 03/05/17 03:09 Eosinophils # 0.0 K/mcL (0.0-0.6) 03/05/17 03:09 Basophils # 0.0 K/mcL (0.0-0.2) 03/05/17 03:09 Immature Plt Fraction 4.0 % (1.1-6.1) 03/04/17 23:13 Sodium 136 mEq/L (136-145) 03/05/17 03:09 Potassium 4.5 mEq/L (3.5-4.5) 03/05/17 03:09 Chloride 107 mEq/L (98-109) 03/05/17 03:09 Carbon Dioxide 23 mEq/L (19-29) 03/05/17 03:09 BUN 14 mg/dL (8-26) 03/05/17 03:09 Creatinine 0.94 mg/dL (0.72-1.25) 03/05/17 03:09 Est GFR ( Amer) > 60 (> 60) 03/05/17 03:09 Est GFR (Non-Af Amer) > 60 (> 60) 03/05/17 03:09 BUN/Creatinine Ratio 15 (6-26) 03/05/17 03:09 Glucose 117 mg/dL (70-99) H 03/05/17 03:09 Est Mean Plasma Glucose 103 mg/dl 03/05/17 03:09 Hemoglobin A1c 5.2 % (-5.6) 03/05/17 03:09 Calculated Osmolality 284 (280-300) 03/05/17 03:09 Calcium 8.4 mg/dL (8.6-10.8) L 03/05/17 03:09 Phosphorus 2.5 mg/dL (2.3-4.7) 03/05/17 03:09 Magnesium 1.8 mg/dL (1.6-2.6) 03/05/17 03:09 Troponin I 0.01 ng/mL (0-0.03) 03/04/17 23:13 Triglycerides 56 mg/dL (< 150) 03/05/17 03:09 Cholesterol 116 mg/dL (< 200) 03/05/17 03:09 LDL Cholesterol, Calc 75 mg/dL (0-99) 03/05/17 03:09 VLDL Cholesterol, Calc 11 mg/dL (< 31) 03/05/17 03:09 HDL Cholesterol 30 mg/dL (40-59) L 03/05/17 03:09 Cholesterol/HDL Ratio 3.9 (0-4.9) 03/05/17 03:09 TSH 0.667 mcIU/mL (0.350-4.840) 03/05/17 03:09 Free T4 1.21 ng/dl (0.70-1.48) 03/05/17 03:09 Total T3 0.80 ng/mL (0.58-1.59) 03/05/17 03:09 Consult Discharge Plan - Plan Referrals: Destin Álvarez [Outside] Muna,Roger Ortiz MD [Primary Care Provider] -
--- NOTE | 2017-03-08 14:02 | Internal Med Progress Note ---
Date of Encounter: 03/08/17 Time of Encounter: 14:00 - Assessment and plan (1) Schizophrenia Current Visit: Yes Status: Chronic Qualifiers: Schizophrenia type: paranoid schizophrenia Qualified Code(s): F20.0 - Paranoid schizophrenia (2) Syncope Current Visit: Yes Status: Acute Qualifiers: Syncope type: unspecified Qualified Code(s): R55 - Syncope and collapse (3) Bradycardia Current Visit: Yes Status: Resolved (4) Thyroid disease Current Visit: Yes Status: Chronic (5) DVT prophylaxis Current Visit: Yes Status: Acute - Subjective Interval history: Mr. Markel Chavez is a 61-year-old male was brought in for recurrent syncopal episode which lasted for 15-20 seconds. He was noted to be bradycardic in the range of 40s and 50s. Apparently he was off his antipsychotic medicines which she takes for schizophrenia for almost 5 months and those have been recently restarted. Cardiology has seen the patient. His echo carotid ultrasound CT head are unremarkable and cardiology has recommended to simply observe him and keep him off negative inotropic medication. He has a psychiatrist as outpatient with whom he follows now. We offered patient to be discharged however patient has concerns. She thinks he is quite delusional has been complaining of people visiting him which do not excess. She feels that to his not talking much and get irritated easily. I asked her if any of those symptoms or new and it appears to me that there most of the problems he has have been exist for last 20 years. In any case my impression is that is not very willing to take him home though it does not appear that patient is posing any threat to himself or anyone else. I tried to explain her that since her his antipsychotic medication had been restarted it may take some time for him to improve but as she continued to insist will involve psychiatry tomorrow to see if he can arrange an inpatient psych rehabilitation for him 03/08 patient was seen today. Psychiatry was consulted who has recommended to lower down the dosage of psych medicine by reducing trazodone to 50 mg daily and Haldol to 5 mg daily. Will observe the patient for a day. Psych is looking to talk to the family for long-term care however if his symptoms improve I think he can be discharged. He seems much awake and alert this morning being though and psych came he was quite drowsy due to heavy dose of his medication. - Constitutional Vitals: Temp Pulse Resp BP Pulse Ox 98.4 F 79 16 123/77 97 03/08/17 11:28 03/08/17 11:28 03/08/17 11:28 03/08/17 11:28 03/08/17 11:28 General appearance: Present: cooperative, A&O X 3, pleasant, no acute distress, answers questions appropriately Exam: Somnolent this morning but improving - Head Head exam: Present: atraumatic, normocephalic - Eye Eye exam: Present: PERRL, conjuntiva pink, sclera anicteric Pupils: Present: PERRL - Neck Neck exam general surgery: Present: supple, trachea midline. Absent: lymphadenopathy - Respiratory Respiratory exam: Present: CTAB. Absent: accessory muscle use, rales, rhonchi, wheezes - Cardiovascular Cardiovascular exam: Present: RRR, +S1, +S2. Absent: diastolic murmur, gallop, rubs, systolic murmur - GI/Abdominal GI/Abdominal exam: Present: normal bowel sounds, soft, no peritoneal signs. Absent: distended, tenderness - Extremities Exam Extremities exam: Present: warm, radial pulses palpable and symetrical. Absent : calf tenderness, cyanotic, pedal edema - Neurological Exam Neurological exam: Present: CN II-XII intact, oriented X3, no focal deficits. Absent: pronater drift, facial droop, speech deficit - Skin Skin exam: Present: dry, intact Internal Medicine: Result - Labs CBC & Chem 7: 03/05/17 03:09 03/05/17 03:09 Consult Discharge Plan - Plan Referrals: [facility] [Outside] Muna,Roger Ortiz MD [Primary Care Provider] -
[2017-03-08] MEDS ORDERED: Acetaminophen 325 MG TABLET PO PRN (17:52)
[2017-03-08] MEDS: traZODone 50 MG TABLET PO SCH (20:26)
[2017-03-09] MEDS: *HR* Heparin 5,000 UNIT/ML VIAL SQ SCH ×3 (06:00→22:40)
[2017-03-09] MEDS: Levothyroxine 25 MCG TABLET PO SCH (06:00)
[2017-03-09] MEDS: traZODone 50 MG TABLET PO SCH ×2 (08:55→20:40)
--- NOTE | 2017-03-09 13:33 | Psychiatry Progress Note ---
Date of Encounter: 03/09/17 Time of Encounter: 11:50 Subjective Interval history: Patient seen today for follow-up and does remain sedated this morning. Per notes patient woke up yesterday afternoon and was more oriented. Patient's daughter is with him at bedside and she reports that the grogginess is not typical for him. We did discuss that having started the patient on higher doses of psychiatric meds initially may cause some sedation over the next couple of days but should improve over time. We decreased the doses significantly yesterday. Primary team is likely recommending transfer to ECF as does not think she can care for him at home any longer. Review of Systems ROS unobtainable: due to patient condition Psychiatric: Reports: auditory hallucinations Objective: Exam Patient orientation: Yes Person Level of alertness: Sedated Patient appearance: Unkempt Behavior: other (Sleepy) Psychomotor activity: Slowed Eye contact: Minimal Contact Mood description: Euthymic/stable Affect description: other (Sleepy) Speech pattern: Slowed Speech volume: Soft/Quiet Thought process: [place] Thought content: No Suicidal ideation, No Homicidal ideation Perceptual disturbances: No Reacting to internal stimuli Judgment: Poor Insight: None Results - Vital Signs Vital Signs: Temp Pulse Resp BP Pulse Ox 98.4 F 73 20 159/74 97 03/09/17 11:49 03/09/17 11:49 03/09/17 11:49 03/09/17 11:49 03/09/17 11:49 Assessment and Plan (1) Schizophrenia Current visit: Yes Status: Chronic Plan: Continue hospitalization Additional Plan: Recommend continuing Haldol. Consider discontinuing trazodone until patient's sedation is completely improved and then restarted lithium dose. At this time, does not appear patient requires a psychiatric admission. Agree with placement to ECF once patient is stable medically. Please call psych with further questions. Risks, benefits, side effects, alternatives discussed w/pt: Yes Patient agreeable to treatment: Yes Qualifiers: Schizophrenia type: paranoid schizophrenia Qualified Code(s): F20.0 - Paranoid schizophrenia Consult Discharge Plan - [facility] Muna,Roger Ortiz MD [Primary Care Provider] -
[2017-03-10] MEDS: Levothyroxine 25 MCG TABLET PO SCH (05:32)
[2017-03-10] MEDS: *HR* Heparin 5,000 UNIT/ML VIAL SQ SCH (05:32)
[2017-03-10] MEDS: ceFAZolin 2,000 MG in D5% in Water 100 ML IVPB SCH ×2 (09:41→17:51)
[2017-03-10] MEDS: traZODone 50 MG TABLET PO SCH ×2 (09:42→21:58)
[2017-03-10] MEDS: 0.9 % Sodium Chloride 1,000 ML IVC SCH (14:24)
--- NOTE | 2017-03-10 16:22 | Internal Med Progress Note ---
Date of Encounter: 03/10/17 (Late entry) Time of Encounter: 16:21 - Assessment and plan (1) Schizophrenia Current Visit: Yes Status: Chronic Qualifiers: Schizophrenia type: paranoid schizophrenia Qualified Code(s): F20.0 - Paranoid schizophrenia (2) Syncope Current Visit: Yes Status: Acute Qualifiers: Syncope type: unspecified Qualified Code(s): R55 - Syncope and collapse (3) Bradycardia Current Visit: Yes Status: Resolved (4) Thyroid disease Current Visit: Yes Status: Chronic (5) DVT prophylaxis Current Visit: Yes Status: Acute - Subjective Interval history: Mr. Markel Chavez is a 61-year-old male was brought in for recurrent syncopal episode which lasted for 15-20 seconds. He was noted to be bradycardic in the range of 40s and 50s. Apparently he was off his antipsychotic medicines which she takes for schizophrenia for almost 5 months and those have been recently restarted. Cardiology has seen the patient. His echo carotid ultrasound CT head are unremarkable and cardiology has recommended to simply observe him and keep him off negative inotropic medication. He has a psychiatrist as outpatient with whom he follows now. We offered patient to be discharged however patient has concerns. She thinks he is quite delusional has been complaining of people visiting him which do not excess. She feels that to his not talking much and get irritated easily. I asked her if any of those symptoms or new and it appears to me that there most of the problems he has have been exist for last 20 years. In any case my impression is that is not very willing to take him home though it does not appear that patient is posing any threat to himself or anyone else. I tried to explain her that since her his antipsychotic medication had been restarted it may take some time for him to improve but as she continued to insist will involve psychiatry tomorrow to see if he can arrange an inpatient psych rehabilitation for him 03/08 patient was seen today. Psychiatry was consulted who has recommended to lower down the dosage of psych medicine by reducing trazodone to 50 mg daily and Haldol to 5 mg daily. Will observe the patient for a day. Psych is looking to talk to the family for long-term care however if his symptoms improve I think he can be discharged. He seems much awake and alert this morning being though and psych came he was quite drowsy due to heavy dose of his medication. 03/09 patient was seen in the morning. Seems pretty pleasant. We are waiting for detention bed placement. Continue current treatment. He will be transferred to non-telemetry floor as no telemetry beds available for other patients - Constitutional Vitals: Temp Pulse Resp BP Pulse Ox 98.4 F 110 20 167/80 94 03/10/17 16:07 03/10/17 16:07 03/10/17 16:07 03/10/17 16:03/10/17 16:07 General appearance: Present: cooperative, A&O X 3, pleasant, no acute distress, answers questions appropriately - Head Head exam: Present: atraumatic, normocephalic - Eye Eye exam: Present: PERRL, conjuntiva pink, sclera anicteric Pupils: Present: PERRL - Neck Neck exam general surgery: Present: supple, trachea midline. Absent: lymphadenopathy - Respiratory Respiratory exam: Present: CTAB. Absent: accessory muscle use, rales, rhonchi, wheezes - Cardiovascular Cardiovascular exam: Present: RRR, +S1, +S2. Absent: diastolic murmur, gallop, rubs, systolic murmur - GI/Abdominal GI/Abdominal exam: Present: normal bowel sounds, soft, no peritoneal signs. Absent: distended, tenderness - Extremities Exam Extremities exam: Present: warm, radial pulses palpable and symetrical. Absent : calf tenderness, cyanotic, pedal edema - Neurological Exam Neurological exam: Present: CN II-XII intact, no focal deficits. Absent: pronater drift, facial droop, speech deficit Additional comments: Awake answer simple questions, however then started talking irrelevant issues there and seemed to understand complex questions well but does follow simple commands nonfocal exam otherwise - Skin Skin exam: Present: dry, intact Internal Medicine: Result - Labs CBC & Chem 7: 03/05/17 03:09 03/05/17 03:09 Consult Discharge Plan - Plan Referrals: [facility] [Outside] Muna,Roger Ortiz MD [Primary Care Provider] -
--- NOTE | 2017-03-10 16:29 | Internal Med Progress Note ---
Date of Encounter: 03/10/17 Time of Encounter: 16:24 - Assessment and plan (1) Schizophrenia Current Visit: Yes Status: Chronic Qualifiers: Schizophrenia type: paranoid schizophrenia Qualified Code(s): F20.0 - Paranoid schizophrenia (2) Syncope Current Visit: Yes Status: Acute Qualifiers: Syncope type: unspecified Qualified Code(s): R55 - Syncope and collapse (3) Bradycardia Current Visit: Yes Status: Resolved (4) Thyroid disease Current Visit: Yes Status: Chronic (5) DVT prophylaxis Current Visit: Yes Status: Acute (6) Hematuria Current Visit: Yes Status: Acute Qualifiers: Qualified Code(s): R31.9 - Hematuria, unspecified - Subjective Interval history: Mr. Markel Chavez is a 61-year-old male was brought in for recurrent syncopal episode which lasted for 15-20 seconds. He was noted to be bradycardic in the range of 40s and 50s. Apparently he was off his antipsychotic medicines which she takes for schizophrenia for almost 5 months and those have been recently restarted. Cardiology has seen the patient. His echo carotid ultrasound CT head are unremarkable and cardiology has recommended to simply observe him and keep him off negative inotropic medication. He has a psychiatrist as outpatient with whom he follows now. We offered patient to be discharged however patient has concerns. She thinks he is quite delusional has been complaining of people visiting him which do not excess. She feels that to his not talking much and get irritated easily. I asked her if any of those symptoms or new and it appears to me that there most of the problems he has have been exist for last 20 years. In any case my impression is that is not very willing to take him home though it does not appear that patient is posing any threat to himself or anyone else. I tried to explain her that since her his antipsychotic medication had been restarted it may take some time for him to improve but as she continued to insist will involve psychiatry tomorrow to see if he can arrange an inpatient psych rehabilitation for him 03/08 patient was seen today. Psychiatry was consulted who has recommended to lower down the dosage of psych medicine by reducing trazodone to 50 mg daily and Haldol to 5 mg daily. Will observe the patient for a day. Psych is looking to talk to the family for long-term care however if his symptoms improve I think he can be discharged. He seems much awake and alert this morning being though and psych came he was quite drowsy due to heavy dose of his medication. 03/09 patient was seen in the morning. Seems pretty pleasant. We are waiting for senior living bed placement. Continue current treatment. He will be transferred to non-telemetry floor as no telemetry beds available for other patients 03/10 seen this morning and noted that patient was touching his diaper. Nursing staff check the diaper noted fresh blood. They made 3 attempts to put a Lawson catheter as they were advised. Urology is informed and Dr. North will see the patient for urological evaluation. Start IV fluid monitor hemoglobin and recheck renal function and DC heparin and restart SCDs. He is planned to be discharged to a nursing facility for which we are waiting for bed placement will hold him for urological workup - Constitutional Vitals: Temp Pulse Resp BP Pulse Ox 98.4 F 110 20 167/80 94 03/10/17 16:07 03/10/17 16:07 03/10/17 16:07 03/10/17 16:07 03/10/17 16:07 General appearance: Present: cooperative, A&O X 3, pleasant, no acute distress, answers questions appropriately Internal Medicine: Result - Labs CBC & Chem 7: 03/05/17 03:09 03/05/17 03:09 Consult Discharge Plan - Plan Referrals: [facility] [Outside] Roger Toro MD [Primary Care Provider] -
--- NOTE | 2017-03-10 17:51 | Urology - Consult Note ---
Date of Encounter: 03/10/17 Time of Encounter: 17:49 - Assessment and Plan (1) Hematuria Current Visit: Yes Status: Acute Assessment and plan: 61-year-old man with a history of hematuria, schizophrenia, and meatal stenosis. I was able to pass an 18 [place] catheter. I hand irrigated the bladder. No clot returned but the urine was bloody. I was not able to pass a larger, 3 way catheter due to his meatal stenosis. I will see how he does with the 18 [place] catheter to drainage. I will have the nurses send a urine sample for culture. We can hand irrigate as needed. He will remain inpatient and I will closely follow along. His hemoglobin and hematocrit are stable. We will need to check that tomorrow morning. I typically conservatively manage patient' s hematuria and consider operative intervention if the bleeding doesn't resolve on its own. Qualifiers: Qualified Code(s): R31.9 - Hematuria, unspecified Urology CN:[facility] Consult date: 03/10/17 Reason for consult Urology: Gross Hematuria Requesting physician: Jere Moreau History of present illness: 61-year-old man was initially admitted for mental status changes and slurring of speech. He has a history of schizophrenia. The plan was to discharge him today, but the primary team noted bloody urine. They attempted to place a catheter. They were successful with a 14 [place] catheter. The urine has been bautista red colored. They have noted some blood clots. He was on heparin subcutaneous, but that was discontinued today. His nurse says that he has a narrow meatus and it was difficult for her to pass larger catheters. Past Med Surg Social Fam HX - Past Medical History Medical history: arthritis, GERD, hyperlipidemia Psychiatric history: schizophrenia - Past Surgical History Surgical History: herniorrhaphy - Social History Smoking Status: Never smoker Smokeless Tobacco Status: No Alcohol use: none Drug use: none - Family History Father Hx Family Cardiac Disorders: Yes (mi) Medications and Allergies Haloperidol 10 mg PO HS 03/03/16 [History] Levothyroxine [Synthroid] 25 mcg PO DAILY 03/03/16 [History] Simvastatin [Zocor] 20 mg PO HS 03/03/16 [History] Omeprazole [PriLOSEC] 20 mg PO DAILY 03/31/16 [History] Donepezil HCl [Aricept] 10 mg PO HS 03/05/17 [History] Lisinopril [Zestril] 5 mg PO DAILY 03/05/17 [History] Trazodone HCl 300 mg PO HS 03/05/17 [History] Benztropine Mesylate 2 mg PO HS 03/06/17 [History] Oxybutynin [Ditropan] 5 mg PO HS 03/06/17 [History] lamoTRIgine [Lamictal] 100 mg PO HS 03/06/17 [History] Allergies No Known Allergies Allergy (Verified 03/04/17 09:07) Review of Systems ROS unobtainable: due to mental status Exam Initial Vital Signs Temp Pulse Resp BP Pulse Ox 97 F L 46 18 115/60 98 03/04/17 23:06 03/04/17 23:06 03/04/17 23:06 03/04/17 23:06 03/04/17 23:06 - General physical appearance Present: well developed, well nourished, no distress - Eyes Absent: icteric - ENT Present: normal nares - Neck Present: trachea midline - Respiratory Present: normal respiratory effort - Cardiovascular Cardiovascular exam IM: RRR - Abdomen Abdomen: Present: soft - Genitourinary normal penis with no external lesions (14 [place] Lawson catheter in place with bloody urine.) Urology Results - Labs 03/05/17 03:09 03/05/17 03:09 Abnormal lab results Glucose 117 mg/dL (70-99) H 03/05/17 03:09 Calcium 8.4 mg/dL (8.6-10.8) L 03/05/17 03:09 HDL Cholesterol 30 mg/dL (40-59) L 03/05/17 03:09 All other labs normal. Consult Discharge Plan - Plan Referrals: [facility] [Outside] Muna,Roger Ortiz MD [Primary Care Provider] -
[2017-03-10] MEDS ORDERED: *HR* Heparin 5,000 UNIT/ML VIAL IVP PRN (22:30)
[2017-03-10] MEDS ORDERED: Heparin 25,000 UNIT/500 ML D5W 25,000 UNIT/500 ML MLS IVC SCH (22:30)
[2017-03-10 23:12] LABS: Hematocrit 40.5 % (37.5-50.1); Hemoglobin 14.3 g/dL (12.9-16.9); Mean Corpuscular HGB Conc 35.3 g/dL (31.6-35.5); Mean Corpuscular Hemoglobin 31.6 pg (28.0-33.3); Mean Corpuscular Volume 89.6 fL (83.0-100.0); Mean Platelet Volume 9.6 fL (9.4-12.4); Platelet Count 234 K/mcL (140-400); Red Blood Count 4.52 M/mcL (4.19-5.50); Red Cell Distribution Width 12.6 % (11.5-14.5)
[2017-03-11] MEDS: 0.9 % Sodium Chloride 1,000 ML IVC SCH ×3 (00:45→16:49)
--- NOTE | 2017-03-11 03:22 | Event Note ---
Date of Encounter: 03/11/17 Time of Encounter: 03:19 was notified by the nurse that ronald vascular US of left arm is positive for acute thrombus. will start on low dose heparin drip, did note that he has hematuria for which urology is being consulted. but given acute thrombus , he is at high risk for PE, will start AC. repeat cbc in am, hb currnetly stable at 13.
[2017-03-11] MEDS: ceFAZolin 2,000 MG in D5% in Water 100 ML IVPB SCH ×3 (05:17→16:46)
[2017-03-11] MEDS: Levothyroxine 25 MCG TABLET PO SCH (05:20)
[2017-03-11 06:21] LABS: Basophils % 0.3 %; Eosinophils % 0.3 %; Hematocrit 39.1 % (37.5-50.1); Hemoglobin 13.8 g/dL (12.9-16.9); Immature Granulocytes % 1.5 % (0-4); Lymphocytes % 9.2 %; Mean Corpuscular HGB Conc 35.3 g/dL (31.6-35.5); Mean Corpuscular Hemoglobin 31.7 pg (28.0-33.3); Mean Corpuscular Volume 89.9 fL (83.0-100.0); Mean Platelet Volume 9.3 fL (9.4-12.4); Monocytes # 1.1 K/mcL (0.0-1.3); Monocytes % 10.3 %; Neutrophils # 8.5 K/mcL (1.6-8.9); Platelet Count 224 K/mcL (140-400); Red Blood Count 4.35 M/mcL (4.19-5.50); Red Cell Distribution Width 12.6 % (11.5-14.5); Segmented Neutrophils % 78.4 %
[2017-03-11 06:34] LABS: Alanine Aminotransferase 38 Units/L (0-55); Albumin 2.6 g/dL (3.5-5.0); Albumin/Globulin Ratio 0.8 (1.1-2.2); Alkaline Phosphatase 70 Units/L (38-126); Aspartate Amino Transferase 24 Units/L (5-34); BUN/Creatinine Ratio 20 (6-26); Bilirubin,Total 0.5 mg/dL (0.2-1.2); Blood Urea Nitrogen 18 mg/dL (8-26); Calcium 8.1 mg/dL (8.6-10.8); Carbon Dioxide 24 mEq/L (19-29); Chloride 99 mEq/L (98-109); Globulin 3.2 g/dL (2.4-3.5); Glucose 129 mg/dL (70-99); Osmolality,Calculated 274 (280-300); Potassium 3.8 mEq/L (3.5-4.5); Sodium 130 mEq/L (136-145); Total Protein 5.8 g/dL (6.0-8.3); eGFR For African Americans > 60 (> 60); eGFR For Non-African Americans > 60 (> 60)
[2017-03-11 06:35] LABS: Activated Partial Thrombo Time 110.6 Seconds (26.0-36.0)
[2017-03-11 06:47] LABS: Heparin anti-factor XA UFH 0.68 IU/mL (0.30-0.70)
--- NOTE | 2017-03-11 08:36 | Urology Progress Note ---
Date of Encounter: 03/11/17 Time of Encounter: 08:33 - Assessment and Plan (1) Hematuria Current Visit: Yes Status: Acute Assessment and plan: 61-year-old man with schizophrenia and hematuria. 1. continue indwelling catheter. Anticoagulation per the primary team. If his hematuria persists, we can try to get a three-way catheter in. He does have significant meatal stenosis and it was difficult to even get an [address] 2. He doesn't require operative intervention at this point. The urine is mostly clear while he is off the heparin drip. Hopefully the bleeding will continue to improve and we will be able to continue the anticoagulant for his DVT. Qualifiers: Qualified Code(s): R31.9 - Hematuria, unspecified Progress Note Narrative: 61-year-old man seen in follow-up today. He has hematuria. I placed an 18 [place] catheter. He was diagnosed with an arm DVT last night. A heparin drip has been started. His urine has been intermittently bloody according to the nurse. This morning it is mostly clear to light pink color. The heparin drip has been paused. Objective Initial Vital Signs Temp Pulse Resp BP Pulse Ox 97 F L 46 18 115/60 98 03/04/17 23:06 03/04/17 23:06 03/04/17 23:06 03/04/17 23:06 03/04/17 23:06 - General physical appearance Present: well developed, well nourished, no distress - Respiratory Present: normal respiratory effort - Abdomen Present: soft - Genitourinary Urine Appearance: Present: Hematuria (clear to light pink currently) - Labs 03/11/17 06:12 03/11/17 06:12 Diabetes panel 03/11/17 Range/Units 06:12 Sodium 130 L (136-145) mEq/L Potassium 3.8 (3.5-4.5) mEq/L Chloride 99 (98-109) mEq/L Carbon Dioxide 24 (19-29) mEq/L BUN 18 (8-26) mg/dL Creatinine 0.92 (0.72-1.25) mg/dL Glucose 129 H (70-99) mg/dL Calcium 8.1 L (8.6-10.8) mg/dL AST 24 (5-34) Units/L ALT 38 (0-55) Units/L Alkaline Phosphatase 70 (38-126) Units/L Albumin 2.6 L (3.5-5.0) g/dL Calcium panel 03/11/17 Range/Units 06:12 Calcium 8.1 L (8.6-10.8) mg/dL Albumin 2.6 L (3.5-5.0) g/dL Pituitary panel 03/11/17 Range/Units 06:12 Sodium 130 L (136-145) mEq/L Potassium 3.8 (3.5-4.5) mEq/L Chloride 99 (98-109) mEq/L Carbon Dioxide 24 (19-29) mEq/L BUN 18 (8-26) mg/dL Creatinine 0.92 (0.72-1.25) mg/dL Glucose 129 H (70-99) mg/dL Calcium 8.1 L (8.6-10.8) mg/dL Adrenal panel 03/11/17 Range/Units 06:12 Sodium 130 L (136-145) mEq/L Potassium 3.8 (3.5-4.5) mEq/L Chloride 99 (98-109) mEq/L Carbon Dioxide 24 (19-29) mEq/L BUN 18 (8-26) mg/dL Creatinine 0.92 (0.72-1.25) mg/dL Glucose 129 H (70-99) mg/dL Calcium 8.1 L (8.6-10.8) mg/dL Total Bilirubin 0.5 (0.2-1.2) mg/dL AST 24 (5-34) Units/L ALT 38 (0-55) Units/L Alkaline Phosphatase 70 (38-126) Units/L Albumin 2.6 L (3.5-5.0) g/dL - VTE Documentation of Mechanical Device: Intermittent pneumatic compression device Consult Discharge Plan - Plan Referrals: [facility] [Outside] Roger Toro MD [Primary Care Provider] -
--- NOTE | 2017-03-11 09:48 | Internal Med Progress Note ---
Date of Encounter: 03/11/17 Time of Encounter: 09:44 - Assessment and plan (1) Schizophrenia Current Visit: Yes Status: Chronic Qualifiers: Schizophrenia type: paranoid schizophrenia Qualified Code(s): F20.0 - Paranoid schizophrenia (2) Syncope Current Visit: Yes Status: Acute Qualifiers: Syncope type: unspecified Qualified Code(s): R55 - Syncope and collapse (3) Bradycardia Current Visit: Yes Status: Resolved (4) Thyroid disease Current Visit: Yes Status: Chronic (5) DVT prophylaxis Current Visit: Yes Status: Acute (6) Hematuria Current Visit: Yes Status: Acute Qualifiers: Qualified Code(s): R31.9 - Hematuria, unspecified (7) Left upper extremity deep vein thrombosis Current Visit: Yes Status: Acute Qualifiers: Affected thrombotic vein of extremity: unspecified vein of extremity Chronicity: acute Qualified Code(s): I82.622 - Acute embolism and thrombosis of deep veins of left upper extremity - Subjective Interval history: Mr. Markel Chavez is a 61-year-old male was brought in for recurrent syncopal episode which lasted for 15-20 seconds. He was noted to be bradycardic in the range of 40s and 50s. Apparently he was off his antipsychotic medicines which she takes for schizophrenia for almost 5 months and those have been recently restarted. Cardiology has seen the patient. His echo carotid ultrasound CT head are unremarkable and cardiology has recommended to simply observe him and keep him off negative inotropic medication. He has a psychiatrist as outpatient with whom he follows now. We offered patient to be discharged however patient has concerns. She thinks he is quite delusional has been complaining of people visiting him which do not excess. She feels that to his not talking much and get irritated easily. I asked her if any of those symptoms or new and it appears to me that there most of the problems he has have been exist for last 20 years. In any case my impression is that is not very willing to take him home though it does not appear that patient is posing any threat to himself or anyone else. I tried to explain her that since her his antipsychotic medication had been restarted it may take some time for him to improve but as she continued to insist will involve psychiatry tomorrow to see if he can arrange an inpatient psych rehabilitation for him 03/08 patient was seen today. Psychiatry was consulted who has recommended to lower down the dosage of psych medicine by reducing trazodone to 50 mg daily and Haldol to 5 mg daily. Will observe the patient for a day. Psych is looking to talk to the family for long-term care however if his symptoms improve I think he can be discharged. He seems much awake and alert this morning being though and psych came he was quite drowsy due to heavy dose of his medication. 03/09 patient was seen in the morning. Seems pretty pleasant. We are waiting for senior care bed placement. Continue current treatment. He will be transferred to non-telemetry floor as no telemetry beds available for other patients 03/10 seen this morning and noted that patient was touching his diaper. Nursing staff check the diaper noted fresh blood. They made 3 attempts to put a Lawson catheter as they were advised. Urology is informed and Dr. North will see the patient for urological evaluation. Start IV fluid monitor hemoglobin and recheck renal function and DC heparin and restart SCDs. He is planned to be discharged to a nursing facility for which we are waiting for bed placement will hold him for urological workup 03/11 family was concerned about confusion therefore an MRI was done yesterday which did not show any acute stroke. Previously CAT scan and ultrasound carotid and echocardiogram were done and they are all negative. I did not notice any urinalysis in his last therefore I will go ahead and check one. With Lawson catheter and IV fluid to his hematuria has resolved and as noted by urology he has meatal stenosis. We are watching his hemoglobin on regular basis. Left upper extremity DVT secondary to IV placement causing thrombophlebitis. Surrounding cellulitis was noted therefore Ancef and started. However since this DVT was secondary to line placement I do not anticipate long-term anticoagulation. Currently he is on heparin and has been tolerating it well and I think within a week and another ultrasound can be done to see if clot has resolved in which case we can stop anticoagulation. In any case is upper extremity DVT and lower is for PE. Therefore if hematuria becomes a problem again and the correlation can be stopped and he can be treated with aspirin only. If further help needed hematology can be consulted. He will his stay here for another couple of days at least to see if his urological issues are resolved to the satisfaction. He is planned to go to senior care. Considering all the above findings I think he can be switched to full admit. Family is requesting to take of trazodone and will reduce her dose to 50 daily at bedtime. Since he has developed hematuria I will stop IV heparin. We will watch it closely and repeat ultrasound within a week to see if thrombosis has resolved as a developed due to IV line. IV line has been removed already of course - Constitutional Vitals: Temp Pulse Resp BP Pulse Ox 97.8 F 86 16 157/81 94 03/11/17 07:11 03/11/17 07:11 03/11/17 07:11 03/11/17 07:11 03/11/17 07:11 General appearance: Present: cooperative, A&O X 3, pleasant, no acute distress, answers questions appropriately - Head Head exam: Present: atraumatic, normocephalic - Eye Eye exam: Present: PERRL, conjuntiva pink, sclera anicteric Pupils: Present: PERRL - Neck Neck exam general surgery: Present: supple, trachea midline. Absent: lymphadenopathy - Respiratory Respiratory exam: Present: CTAB. Absent: accessory muscle use, rales, rhonchi, wheezes - Cardiovascular Cardiovascular exam: Present: RRR, +S1, +S2. Absent: diastolic murmur, gallop, rubs, systolic murmur - GI/Abdominal GI/Abdominal exam: Present: normal bowel sounds, soft, no peritoneal signs. Absent: distended, tenderness - Extremities Exam Extremities exam: Present: warm, radial pulses palpable and symetrical. Absent : calf tenderness, cyanotic, pedal edema Additional comments: Left antecubital area and arm is less red and less tender good radial (pulse - Neurological Exam Neurological exam: Present: CN II-XII intact, oriented X3, no focal deficits. Absent: pronater drift, facial droop, speech deficit - Skin Skin exam: Present: dry, intact Internal Medicine: Result - Labs CBC & Chem 7: 03/11/17 06:12 03/11/17 06:12 Labs: Short CBC 03/10/17 03/11/17 Range/Units 23:03 06:12 WBC 9.8 10.8 (4.3-11.1) K/mcL Hgb 14.3 13.8 (12.9-16.9) g/dL Hct 40.5 39.1 (37.5-50.1) % Plt Count 234 224 (140-400) K/mcL Neutrophils # 8.5 (1.6-8.9) K/mcL BMP 03/11/17 06:12 Sodium 130 L Potassium 3.8 Chloride 99 Carbon Dioxide 24 BUN 18 Creatinine 0.92 Glucose 129 H Calcium 8.1 L Liver Function 03/11/17 Range/Units 06:12 Total Bilirubin 0.5 (0.2-1.2) mg/dL AST 24 (5-34) Units/L ALT 38 (0-55) Units/L Alkaline Phosphatase 70 (38-126) Units/L Albumin 2.6 L (3.5-5.0) g/dL - Impressions Impressions Brain MRI 03/10/17 18:06 IMPRESSION: Motion degraded exam. Focus of susceptibility artifact within the right frontal lobe may be related to a previous bleed and/or cavernoma. D/ / Andrew John MD / Andrew John MD Interpreting Provider: Andrew John MD - VTE Documentation of Mechanical Device: Intermittent pneumatic compression device Consult Discharge Plan - Plan Referrals: Maunaboalison Álvarez [Outside] Roger Toro MD [Primary Care Provider] -
--- NOTE | 2017-03-11 11:51 | Venous Imaging Report ---
UE Venous Duplex Patient Name:Markle Chavez Order Number:[id number] Procedure Date:03/10/2017 Date:1955ge:61 yrs Gender:Male Location:[facility] Room #: 3A13 Direct Mail Manager:Amanda Lewis RDCS Referring MD:Shady Rodriguez MD senior systems developer:Roger Toro MD Reading MD:Doug Ramirez MD Primary Indications:R/O DVT, Redness Secondary Indications: Impressions: Acute deep venous thrombosis is present in the left brachial vein. Normal left lower extremity superficial venous exam. Normal contralateral common femoral vein. Recommendations: Test completed on 03/10/2017 at 9:05:00 pm. Critical findings reported to Pt Stephie TEE in person at 9:07:00 pm on 03/10/2017 by Amanda Lewis RDCS. Findings Venous Duplex Results: Left: Venous imaging of the upper extremity reveals full patency and normal vessel compressibility of the left jugular, left subclavian, left axillary, left cephalic, left basilic, left radial and left ulnar. Doppler signals in the evaluated veins were normal. There is an acute occlusive thrombus seen in the left brachial. It demonstrates an incompressible vein. Flow was absent and it did not augment. Prior Study: No prior study available for comparison. Upper Extremity Venous Duplex Side Vein Compress Spontaneous Flow Augment Left Jugular Normal Yes Phasic Yes Left Subclavian Normal Yes Phasic Yes Left Axillary Normal Yes Phasic Yes Left Brachial None no Absent no Left Cephalic Normal Yes Phasic Yes Left Basilic Normal Yes Phasic Yes Left Radial Normal Yes Phasic Yes Left Ulnar Normal Yes Phasic Yes Updated by Doug Ramirez MD on 03/11/2017 11:43:58 AM electronically signed on 03/11/2017 11:44:24 AM with status of Final
[2017-03-11] MEDS: traZODone 50 MG TABLET PO SCH ×2 (12:07→20:32)
[2017-03-12] MEDS: ceFAZolin 2,000 MG in D5% in Water 100 ML IVPB SCH ×4 (01:43→23:59)
[2017-03-12 02:07] LABS: Bilirubin,Urine Negative (Negative); Blood,Urine Large (Negative); Clarity,Urine Clear (Clear); Color,Urine Yellow (Yellow); Glucose,Urine (UA) Normal (Normal); Ketones,Urine >=160 mg/dL (Negative); Leukocyte Esterase,Urine Small (Negative); Nitrite,Urine Negative (Negative); PH,Urine 6.5 pH Units (5.0-8.0); Protein,Urine >=300 mg/dL (Neg-Trace); Specific Gravity,Urine 1.028 (1.010-1.025); Urobilinogen,Urine Normal (Normal)
[2017-03-12 05:34] LABS: Basophils % 0.3 %; Eosinophils % 0.1 %; Hematocrit 39.3 % (37.5-50.1); Hemoglobin 13.6 g/dL (12.9-16.9); Immature Granulocytes % 1.2 % (0-4); Lymphocytes # 0.6 K/mcL (0.6-4.6); Lymphocytes % 4.9 %; Mean Corpuscular HGB Conc 34.6 g/dL (31.6-35.5); Mean Corpuscular Hemoglobin 31.2 pg (28.0-33.3); Mean Corpuscular Volume 90.1 fL (83.0-100.0); Mean Platelet Volume 10.2 fL (9.4-12.4); Monocytes % 8.4 %; Neutrophils # 10.3 K/mcL (1.6-8.9); Platelet Count 269 K/mcL (140-400); Red Blood Count 4.36 M/mcL (4.19-5.50); Red Cell Distribution Width 12.5 % (11.5-14.5); Segmented Neutrophils % 85.1 %
[2017-03-12] MEDS: Levothyroxine 25 MCG TABLET PO SCH (05:34)
[2017-03-12 05:59] LABS: Alanine Aminotransferase 25 Units/L (0-55); Albumin 2.8 g/dL (3.5-5.0); Albumin/Globulin Ratio 0.9 (1.1-2.2); Alkaline Phosphatase 78 Units/L (38-126); Aspartate Amino Transferase 24 Units/L (5-34); BUN/Creatinine Ratio 18 (6-26); Bilirubin,Total 0.6 mg/dL (0.2-1.2); Blood Urea Nitrogen 17 mg/dL (8-26); Calcium 8.4 mg/dL (8.6-10.8); Carbon Dioxide 23 mEq/L (19-29); Chloride 100 mEq/L (98-109); Globulin 3.2 g/dL (2.4-3.5); Glucose 108 mg/dL (70-99); Osmolality,Calculated 278 (280-300); Potassium 3.8 mEq/L (3.5-4.5); Sodium 133 mEq/L (136-145); eGFR For African Americans > 60 (> 60); eGFR For Non-African Americans > 60 (> 60)
--- NOTE | 2017-03-12 09:18 | Urology Progress Note ---
Date of Encounter: 03/12/17 Time of Encounter: 09:16 - Assessment and Plan (1) Hematuria Current Visit: Yes Status: Acute Assessment and plan: His hematuria is improving. I irrigated his catheter today and only a small clot returned. I will continue to monitor. He doesn't require operative intervention at this time. Urine culture was previously negative. He did develop a fever which may be related to his IV site thrombosis and infection. Qualifiers: Qualified Code(s): R31.9 - Hematuria, unspecified Progress Note Narrative: 61-year-old man with schizophrenia and hematuria. His urine is clearing. His heparin drip has been stopped. Urine is draining well. Objective Initial Vital Signs Temp Pulse Resp BP Pulse Ox 97 F L 46 18 115/60 98 03/04/17 23:06 03/04/17 23:06 03/04/17 23:06 03/04/17 23:06 03/04/17 23:06 - General physical appearance Present: well developed, well nourished, no distress - Respiratory Present: normal respiratory effort - Abdomen Present: soft - Genitourinary Urine Appearance: Present: Hematuria (Light pink, clears on hand irrigation.) - Labs 03/12/17 04:26 03/12/17 04:26 Diabetes panel 03/12/17 Range/Units 04:26 Sodium 133 L (136-145) mEq/L Potassium 3.8 (3.5-4.5) mEq/L Chloride 100 (98-109) mEq/L Carbon Dioxide 23 (19-29) mEq/L BUN 17 (8-26) mg/dL Creatinine 0.94 (0.72-1.25) mg/dL Glucose 108 H (70-99) mg/dL Calcium 8.4 L (8.6-10.8) mg/dL AST 24 (5-34) Units/L ALT 25 (0-55) Units/L Alkaline Phosphatase 78 (38-126) Units/L Albumin 2.8 L (3.5-5.0) g/dL Calcium panel 03/12/17 Range/Units 04:26 Calcium 8.4 L (8.6-10.8) mg/dL Albumin 2.8 L (3.5-5.0) g/dL Pituitary panel 03/12/17 Range/Units 04:26 Sodium 133 L (136-145) mEq/L Potassium 3.8 (3.5-4.5) mEq/L Chloride 100 (98-109) mEq/L Carbon Dioxide 23 (19-29) mEq/L BUN 17 (8-26) mg/dL Creatinine 0.94 (0.72-1.25) mg/dL Glucose 108 H (70-99) mg/dL Calcium 8.4 L (8.6-10.8) mg/dL Adrenal panel 03/12/17 Range/Units 04:26 Sodium 133 L (136-145) mEq/L Potassium 3.8 (3.5-4.5) mEq/L Chloride 100 (98-109) mEq/L Carbon Dioxide 23 (19-29) mEq/L BUN 17 (8-26) mg/dL Creatinine 0.94 (0.72-1.25) mg/dL Glucose 108 H (70-99) mg/dL Calcium 8.4 L (8.6-10.8) mg/dL Total Bilirubin 0.6 (0.2-1.2) mg/dL AST 24 (5-34) Units/L ALT 25 (0-55) Units/L Alkaline Phosphatase 78 (38-126) Units/L Albumin 2.8 L (3.5-5.0) g/dL - VTE Documentation of Mechanical Device: Intermittent pneumatic compression device Consult Discharge Plan - Plan Referrals: Destin Álvarez [Outside] Roger Toro MD [Primary Care Provider] -
--- NOTE | 2017-03-12 17:31 | Internal Med Progress Note ---
Date of Encounter: 03/13/17 Time of Encounter: 17:28 - Assessment and plan (1) Schizophrenia Current Visit: Yes Status: Inactive Qualifiers: Schizophrenia type: paranoid schizophrenia Qualified Code(s): F20.0 - Paranoid schizophrenia (2) Syncope Current Visit: Yes Status: Acute Qualifiers: Syncope type: unspecified Qualified Code(s): R55 - Syncope and collapse (3) Bradycardia Current Visit: Yes Status: Resolved (4) Thyroid disease Current Visit: Yes Status: Chronic (5) DVT prophylaxis Current Visit: Yes Status: Acute (6) Hematuria Current Visit: Yes Status: Acute Qualifiers: Qualified Code(s): R31.9 - Hematuria, unspecified (7) Left upper extremity deep vein thrombosis Current Visit: Yes Status: Acute Qualifiers: Affected thrombotic vein of extremity: unspecified vein of extremity Chronicity: acute Qualified Code(s): I82.622 - Acute embolism and thrombosis of deep veins of left upper extremity - Subjective Interval history: Mr. Markel Chavez is a 61-year-old male was brought in for recurrent syncopal episode which lasted for 15-20 seconds. He was noted to be bradycardic in the range of 40s and 50s. Apparently he was off his antipsychotic medicines which she takes for schizophrenia for almost 5 months and those have been recently restarted. Cardiology has seen the patient. His echo carotid ultrasound CT head are unremarkable and cardiology has recommended to simply observe him and keep him off negative inotropic medication. He has a psychiatrist as outpatient with whom he follows now. We offered patient to be discharged however patient has concerns. She thinks he is quite delusional has been complaining of people visiting him which do not excess. She feels that to his not talking much and get irritated easily. I asked her if any of those sympt oms or new and it appears to me that there most of the problems he has have been exist for last 20 years. In any case my impression is that is not very willing to take him home though it does not appear that patient is posing any threat to himself or anyone else. I tried to explain her that since her his antipsychotic medication had been restarted it may take some time for him to improve but as she continued to insist will involve psychiatry tomorrow to see if he can arrange an inpatient psych rehabilitation for him 03/08 patient was seen today. Psychiatry was consulted who has recommended to lower down the dosage of psych medicine by reducing trazodone to 50 mg daily and Haldol to 5 mg daily. Will observe the patient for a day. Psych is looking to talk to the family for long-term care however if his symptoms improve I think he can be discharged. He seems much awake and alert this morning being though and psych came he was quite drowsy due to heavy dose of his medication. 03/09 patient was seen in the morning. Seems pretty pleasant. We are [facility]. Continue current treatment. He will be transferred to non-telemetry floor as no telemetry beds available for other patients 03/10 seen this morning and noted that patient was touching his diaper. Nursing staff check the diaper noted fresh blood. They made 3 attempts to put a Lawson catheter as they were advised. Urology is informed and Dr. North will see the patient for urological evaluation. Start IV fluid monitor hemoglobin and recheck renal function and DC heparin and restart SCDs. He is planned to be discharged to a nursing facility for which we are waiting for bed placement will hold him for urological workup 03/11 family was concerned about confusion therefore an MRI was done yesterday which did not show any acute stroke. Previously CAT scan and ultrasound carotid and echocardiogram were done and they are all negative. I did not notice any urinalysis in his last therefore I will go ahead and check one. With Lawson catheter and IV fluid to his hematuria has resolved and as noted by urology he has meatal stenosis. We are watching his hemoglobin on regular basis. Left upper extremity DVT secondary to IV placement causing thrombophlebitis. Surrounding cellulitis was noted therefore Ancef and started. However since this DVT was secondary to line placement I do not anticipate long-term anticoagulation. Currently he is on heparin and has been tolerating it well and I think within a week and another ultrasound can be done to see if clot has resolved in which case we can stop anticoagulation. In any case is upper extremity DVT and lower is for PE. Therefore if hematuria becomes a problem again and the correlation can be stopped and he can be treated with aspirin only. If further help needed hematology can be consulted. He will his stay here for another couple of days at least to see if his urological issues are resolved to the satisfaction. [facility] Considering all the above findings I think he can be switched to full admit. Family is requesting to take of trazodone and will reduce her dose to 50 daily at bedtime. Since he has developed hematuria I will stop IV heparin. We will watch it closely and repeat ultrasound within a week to see if thrombosis has resolved as a developed due to IV line. IV line has been removed already of course 03/12 patient is awake seems comfortable. Straw-colored urine. CBC CMP within normal range with mildly elevated white count. Abdominal CT showed thickening of the hernandez of urinary bladder. Anticipate that we urology plans to do a cystoscope. incidental finding of right adrenal mass which seems benign but a follow-up CT to be done. Discussed with family - Constitutional Vitals: Temp Pulse Resp BP Pulse Ox 98.5 F 83 16 147/80 97 03/12/17 16:47 03/12/17 16:47 03/12/17 16:47 03/12/17 16:47 03/12/17 16:47 General appearance: Present: cooperative, A&O X 3, pleasant, no acute distress, answers questions appropriately - Head Head exam: Present: atraumatic, normocephalic - Eye Eye exam: Present: PERRL, conjuntiva pink, sclera anicteric Pupils: Present: PERRL - Neck Neck exam general surgery: Present: supple, trachea midline. Absent: lymphadenopathy - Respiratory Respiratory exam: Present: CTAB. Absent: accessory muscle use, rales, rhonchi, wheezes - Cardiovascular Cardiovascular exam: Present: RRR, +S1, +S2. Absent: diastolic murmur, gallop, rubs, systolic murmur - GI/Abdominal GI/Abdominal exam: Present: normal bowel sounds, soft, no peritoneal signs. Absent: distended, tenderness - Extremities Exam Extremities exam: Present: warm, radial pulses palpable and symetrical. Absent : calf tenderness, cyanotic, pedal edema - Neurological Exam Neurological exam: Present: CN II-XII intact, oriented X3, no focal deficits. Absent: pronater drift, facial droop, speech deficit - Skin Skin exam: Present: dry, intact Internal Medicine: Result - Labs CBC & Chem 7: 03/13/17 05:10 03/13/17 05:10 Labs: Short CBC 03/12/17 Range/Units 04:26 WBC 12.1 H (4.3-11.1) K/mcL Hgb 13.6 (12.9-16.9) g/dL Hct 39.3 (37.5-50.1) % Plt Count 269 (140-400) K/mcL Neutrophils # 10.3 H (1.6-8.9) K/mcL BMP 03/12/17 04:26 Sodium 133 L Potassium 3.8 Chloride 100 Carbon Dioxide 23 BUN 17 Creatinine 0.94 Glucose 108 H Calcium 8.4 L Liver Function 03/12/17 Range/Units 04:26 Total Bilirubin 0.6 (0.2-1.2) mg/dL AST 24 (5-34) Units/L ALT 25 (0-55) Units/L Alkaline Phosphatase 78 (38-126) Units/L Albumin 2.8 L (3.5-5.0) g/dL Urine 03/12/17 Range/Units 01:41 Urine Color Yellow (Yellow) Urine Clarity Clear (Clear) Urine pH 6.5 (5.0-8.0) pH Units Ur Specific [place] 1.028 H (1.010-1.025) Urine Protein >=300 H (Neg-Trace) mg/dL Urine Glucose (UA) Normal (Normal) mg/dL - Impressions Impressions Abdomen/Pelvis CT 03/12/17 09:24 IMPRESSION: 1. Somewhat limited evaluation of the urinary bladder secondary to collapse around a Lawson catheter. However, the urinary bladder does appeared diffusely thick-walled with a mild amount of pericystic stranding noted. These findings are most suggestive of a nonspecific cystitis, and clinical correlation is suggested. Urinary bladder malignancy is not excluded. 2. Mild nonspecific left hydronephrosis without demonstrable cause. 3. No urinary calculi or enhancing renal mass is evident. There are small bilateral renal peripelvic cysts. 4. An 11 mm nodular lesion within right adrenal gland, most likely a benign adenoma. However, consider a follow-up adrenal mass protocol CT study, to further evaluate and characterize this nodule. 5. Large amount of stool within the rectal vault, which may suggest fecal impaction. Clinical correlation is advised. D/ / 03/12/2017 14:28:33 Sameer Arevalo MD / michelle Interpreting Provider: Sameer Arevalo MD - VTE Documentation of Mechanical Device: Intermittent pneumatic compression device Consult Discharge Plan - Plan Referrals: Antrimalison Álvarez [Outside] Roger Toro MD [Primary Care Provider] -
[2017-03-12] MEDS: Bisacodyl 10 MG RECTAL SUPPOSITORY RC SCH (20:03)
[2017-03-12] MEDS: traZODone 50 MG TABLET PO SCH (20:16)
[2017-03-13 05:19] LABS: Basophils % 0.3 %; Eosinophils # 0.1 K/mcL (0.0-0.6); Eosinophils % 0.8 %; Hematocrit 36.4 % (37.5-50.1); Hemoglobin 12.2 g/dL (12.9-16.9); Immature Granulocytes % 1.5 % (0-4); Lymphocytes % 8.9 %; Mean Corpuscular HGB Conc 33.5 g/dL (31.6-35.5); Mean Corpuscular Hemoglobin 30.5 pg (28.0-33.3); Mean Platelet Volume 9.1 fL (9.4-12.4); Monocytes # 1.2 K/mcL (0.0-1.3); Monocytes % 10.6 %; Neutrophils # 8.8 K/mcL (1.6-8.9); Platelet Count 268 K/mcL (140-400); Red Cell Distribution Width 12.6 % (11.5-14.5); Segmented Neutrophils % 77.9 %
[2017-03-13] MEDS: Levothyroxine 25 MCG TABLET PO SCH (05:30)
[2017-03-13 05:38] LABS: Alanine Aminotransferase 18 Units/L (0-55); Albumin 2.5 g/dL (3.5-5.0); Albumin/Globulin Ratio 0.7 (1.1-2.2); Alkaline Phosphatase 70 Units/L (38-126); Aspartate Amino Transferase 36 Units/L (5-34); BUN/Creatinine Ratio 19 (6-26); Bilirubin,Total 0.6 mg/dL (0.2-1.2); Blood Urea Nitrogen 17 mg/dL (8-26); Calcium 8.3 mg/dL (8.6-10.8); Carbon Dioxide 21 mEq/L (19-29); Chloride 102 mEq/L (98-109); Globulin 3.7 g/dL (2.4-3.5); Glucose 97 mg/dL (70-99); Osmolality,Calculated 275 (280-300); Potassium 3.9 mEq/L (3.5-4.5); Sodium 132 mEq/L (136-145); Total Protein 6.2 g/dL (6.0-8.3); eGFR For African Americans > 60 (> 60); eGFR For Non-African Americans > 60 (> 60)
--- NOTE | 2017-03-13 07:26 | Urology Progress Note ---
Date of Encounter: 03/13/17 Time of Encounter: 07:24 - Assessment and Plan (1) Hematuria Current Visit: Yes Status: Acute Assessment and plan: 61 year old man with hematuria. Urine is light pink. CT was reviewed. Will continue to observe.He doens't require operative intervention at this time for the level of hematuria he has. Qualifiers: Qualified Code(s): R31.9 - Hematuria, unspecified Progress Note Narrative: 61 year old man with hematuria. CT showed inflamed bladder. Catheter in good position. Urine is light pink. Hemoglobin dropped. Objective Initial Vital Signs Temp Pulse Resp BP Pulse Ox 97 F L 46 18 115/60 98 03/04/17 23:06 03/04/17 23:06 03/04/17 23:06 03/04/17 23:06 03/04/17 23:06 - General physical appearance Present: well developed, well nourished - Respiratory Present: normal expansion - Abdomen Present: soft - Genitourinary Urine Appearance: Present: Hematuria (Clear to light pink.) - Labs 03/13/17 05:10 03/13/17 05:10 Diabetes panel 03/13/17 Range/Units 05:10 Sodium 132 L (136-145) mEq/L Potassium 3.9 (3.5-4.5) mEq/L Chloride 102 (98-109) mEq/L Carbon Dioxide 21 (19-29) mEq/L BUN 17 (8-26) mg/dL Creatinine 0.88 (0.72-1.25) mg/dL Glucose 97 (70-99) mg/dL Calcium 8.3 L (8.6-10.8) mg/dL AST 36 H (5-34) Units/L ALT 18 (0-55) Units/L Alkaline Phosphatase 70 (38-126) Units/L Albumin 2.5 L (3.5-5.0) g/dL Calcium panel 03/13/17 Range/Units 05:10 Calcium 8.3 L (8.6-10.8) mg/dL Albumin 2.5 L (3.5-5.0) g/dL Pituitary panel 03/13/17 Range/Units 05:10 Sodium 132 L (136-145) mEq/L Potassium 3.9 (3.5-4.5) mEq/L Chloride 102 (98-109) mEq/L Carbon Dioxide 21 (19-29) mEq/L BUN 17 (8-26) mg/dL Creatinine 0.88 (0.72-1.25) mg/dL Glucose 97 (70-99) mg/dL Calcium 8.3 L (8.6-10.8) mg/dL Adrenal panel 03/13/17 Range/Units 05:10 Sodium 132 L (136-145) mEq/L Potassium 3.9 (3.5-4.5) mEq/L Chloride 102 (98-109) mEq/L Carbon Dioxide 21 (19-29) mEq/L BUN 17 (8-26) mg/dL Creatinine 0.88 (0.72-1.25) mg/dL Glucose 97 (70-99) mg/dL Calcium 8.3 L (8.6-10.8) mg/dL Total Bilirubin 0.6 (0.2-1.2) mg/dL AST 36 H (5-34) Units/L ALT 18 (0-55) Units/L Alkaline Phosphatase 70 (38-126) Units/L Albumin 2.5 L (3.5-5.0) g/dL - VTE Documentation of Mechanical Device: Intermittent pneumatic compression device Consult Discharge Plan - Plan Referrals: Destin Álvarez [Outside] Roger Toro MD [Primary Care Provider] -
[2017-03-13] MEDS: ceFAZolin 2,000 MG in D5% in Water 100 ML IVPB SCH (09:15)
[2017-03-13] MEDS: Bisacodyl 10 MG RECTAL SUPPOSITORY RC SCH (09:17)
--- NOTE | 2017-03-13 12:34 | Internal Med Progress Note ---
Date of Encounter: 03/13/17 Time of Encounter: 12:31 - Assessment and plan (1) Schizophrenia Current Visit: Yes Status: Inactive Qualifiers: Schizophrenia type: paranoid schizophrenia Qualified Code(s): F20.0 - Paranoid schizophrenia (2) Syncope Current Visit: Yes Status: Acute Qualifiers: Syncope type: unspecified Qualified Code(s): R55 - Syncope and collapse (3) Bradycardia Current Visit: Yes Status: Resolved (4) Thyroid disease Current Visit: Yes Status: Chronic (5) DVT prophylaxis Current Visit: Yes Status: Acute (6) Hematuria Current Visit: Yes Status: Acute Qualifiers: Qualified Code(s): R31.9 - Hematuria, unspecified (7) Left upper extremity deep vein thrombosis Current Visit: Yes Status: Acute Qualifiers: Affected thrombotic vein of extremity: unspecified vein of extremity Chronicity: acute Qualified Code(s): I82.622 - Acute embolism and thrombosis of deep veins of left upper extremity - Subjective Interval history: Mr. Markel Chavez is a 61-year-old male was brought in for recurrent syncopal episode which lasted for 15-20 seconds. He was noted to be bradycardic in the range of 40s and 50s. Apparently he was off his antipsychotic medicines which she takes for schizophrenia for almost 5 months and those have been recently restarted. Cardiology has seen the patient. His echo carotid ultrasound CT head are unremarkable and cardiology has recommended to simply observe him and keep him off negative inotropic medication. He has a psychiatrist as outpatient with whom he follows now. We offered patient to be discharged however patient has concerns. She thinks he is quite delusional has been complaining of people visiting him which do not excess. She feels that to his not talking much and get irritated easily. I asked her if any of those sympt oms or new and it appears to me that there most of the problems he has have been exist for last 20 years. In any case my impression is that is not very willing to take him home though it does not appear that patient is posing any threat to himself or anyone else. I tried to explain her that since her his antipsychotic medication had been restarted it may take some time for him to improve but as she continued to insist will involve psychiatry tomorrow to see if he can arrange an inpatient psych rehabilitation for him 03/08 patient was seen today. Psychiatry was consulted who has recommended to lower down the dosage of psych medicine by reducing trazodone to 50 mg daily and Haldol to 5 mg daily. Will observe the patient for a day. Psych is looking to talk to the family for long-term care however if his symptoms improve I think he can be discharged. He seems much awake and alert this morning being though and psych came he was quite drowsy due to heavy dose of his medication. 03/09 patient was seen in the morning. Seems pretty pleasant. We are waiting for senior care bed placement. Continue current treatment. He will be transferred to non-telemetry floor as no telemetry beds available for other patients 03/10 seen this morning and noted that patient was touching his diaper. Nursing staff check the diaper noted fresh blood. They made 3 attempts to put a Lawson catheter as they were advised. Urology is informed and Dr. North will see the patient for urological evaluation. Start IV fluid monitor hemoglobin and recheck renal function and DC heparin and restart SCDs. He is planned to be discharged to a nursing facility for which we are waiting for bed placement will hold him for urological workup 03/11 family was concerned about confusion therefore an MRI was done yesterday which did not show any acute stroke. Previously CAT scan and ultrasound carotid and echocardiogram were done and they are all negative. I did not notice any urinalysis in his last therefore I will go ahead and check one. With Lawson catheter and IV fluid to his hematuria has resolved and as noted by urology he has meatal stenosis. We are watching his hemoglobin on regular basis. Left upper extremity DVT secondary to IV placement causing thrombophlebitis. Surrounding cellulitis was noted therefore Ancef and started. However since this DVT was secondary to line placement I do not anticipate long-term anticoagulation. Currently he is on heparin and has been tolerating it well and I think within a week and another ultrasound can be done to see if clot has resolved in which case we can stop anticoagulation. In any case is upper extremity DVT and lower is for PE. Therefore if hematuria becomes a problem again and the correlation can be stopped and he can be treated with aspirin only. If further help needed hematology can be consulted. He will his stay here for another couple of days at least to see if his urological issues are resolved to the satisfaction. He is planned to go to senior care. Considering all the above findings I think he can be switched to full admit. Family is requesting to take of trazodone and will reduce her dose to 50 daily at bedtime. Since he has developed hematuria I will stop IV heparin. We will watch it closely and repeat ultrasound within a week to see if thrombosis has resolved as a developed due to IV line. IV line has been removed already of course 03/12 patient is awake seems comfortable. Straw-colored urine. CBC CMP within normal range with mildly elevated white count. Abdominal CT showed thickening of the hernandez of urinary bladder. Anticipate that we urology plans to do a cystoscope. incidental finding of right adrenal mass which seems benign but a follow-up CT to be done. Discussed with family 03/13 patient is awake seems comfortable and communicating more today. I reduce his trazodone from 50 twice a day to 50 daily 2 days ago. Straw-colored urine. CBC CMP within normal range with WBC improving. Abdominal CT showed thickening of the hernandez of urinary bladder. From today's urology noted sounds like that they might be doing cystoscopy as outpatient. Patient developed left brachial DVT however while he was on heparin he started having hematuria and therefore it was a stop. I will repeat ultrasound today to see if upper extremity DVT has resolved in which case we will not need anticoagulation. Discussed with family - Constitutional Vitals: Temp Pulse Resp BP Pulse Ox 98.2 F 76 15 149/71 95 03/13/17 11:08 03/13/17 11:08 03/13/17 11:08 03/13/17 11:08 03/13/17 11:08 General appearance: Present: cooperative, A&O X 3, pleasant, no acute distress, answers questions appropriately Internal Medicine: Result - Labs CBC & Chem 7: 03/13/17 05:10 03/13/17 05:10 Labs: Short CBC 03/13/17 Range/Units 05:10 WBC 11.3 H (4.3-11.1) K/mcL Hgb 12.2 L (12.9-16.9) g/dL Hct 36.4 L (37.5-50.1) % Plt Count 268 (140-400) K/mcL Neutrophils # 8.8 (1.6-8.9) K/mcL BMP 03/13/17 05:10 Sodium 132 L Potassium 3.9 Chloride 102 Carbon Dioxide 21 BUN 17 Creatinine 0.88 Glucose 97 Calcium 8.3 L Liver Function 03/13/17 Range/Units 05:10 Total Bilirubin 0.6 (0.2-1.2) mg/dL AST 36 H (5-34) Units/L ALT 18 (0-55) Units/L Alkaline Phosphatase 70 (38-126) Units/L Albumin 2.5 L (3.5-5.0) g/dL - Impressions Impressions Abdomen/Pelvis CT 03/12/17 09:24 IMPRESSION: 1. Somewhat limited evaluation of the urinary bladder secondary to collapse around a Lawson catheter. However, the urinary bladder does appeared diffusely thick-walled with a mild amount of pericystic stranding noted. These findings are most suggestive of a nonspecific cystitis, and clinical correlation is suggested. Urinary bladder malignancy is not excluded. 2. Mild nonspecific left hydronephrosis without demonstrable cause. 3. No urinary calculi or enhancing renal mass is evident. There are small bilateral renal peripelvic cysts. 4. An 11 mm nodular lesion within right adrenal gland, most likely a benign adenoma. However, consider a follow-up adrenal mass protocol CT study, to further evaluate and characterize this nodule. 5. Large amount of stool within the rectal vault, which may suggest fecal impaction. Clinical correlation is advised. D/ / 03/12/2017 14:28:33 Sameer Arevalo MD / [place] [facility] Interpreting Provider: Sameer Arevalo MD - VTE Documentation of Mechanical Device: Intermittent pneumatic compression device Consult Discharge Plan - Plan Referrals: [facility] [Outside] Roger Toro MD [Primary Care Provider] -
[2017-03-13] MEDS: cephALEXin 500 MG CAPSULE PO SCH ×3 (13:20→19:49)
[2017-03-13] MEDS: traZODone 50 MG TABLET PO SCH (19:48)
[2017-03-14] MEDS: Levothyroxine 25 MCG TABLET PO SCH (05:42)
[2017-03-14 06:42] LABS: Basophils # 0.1 K/mcL (0.0-0.2); Basophils % 0.6 %; Eosinophils # 0.2 K/mcL (0.0-0.6); Eosinophils % 1.7 %; Hematocrit 37.2 % (37.5-50.1); Hemoglobin 12.8 g/dL (12.9-16.9); Immature Granulocytes % 1.6 % (0-4); Lymphocytes % 11.5 %; Mean Corpuscular HGB Conc 34.4 g/dL (31.6-35.5); Mean Corpuscular Hemoglobin 31.4 pg (28.0-33.3); Mean Corpuscular Volume 91.2 fL (83.0-100.0); Mean Platelet Volume 9.2 fL (9.4-12.4); Monocytes # 0.7 K/mcL (0.0-1.3); Monocytes % 8.1 %; Neutrophils # 6.8 K/mcL (1.6-8.9); Platelet Count 266 K/mcL (140-400); Red Blood Count 4.08 M/mcL (4.19-5.50); Red Cell Distribution Width 12.5 % (11.5-14.5); Segmented Neutrophils % 76.5 %
[2017-03-14 06:47] LABS: Alanine Aminotransferase 25 Units/L (0-55); Albumin 2.6 g/dL (3.5-5.0); Albumin/Globulin Ratio 0.8 (1.1-2.2); Alkaline Phosphatase 78 Units/L (38-126); Aspartate Amino Transferase 35 Units/L (5-34); BUN/Creatinine Ratio 14 (6-26); Bilirubin,Total 0.6 mg/dL (0.2-1.2); Blood Urea Nitrogen 12 mg/dL (8-26); Calcium 8.6 mg/dL (8.6-10.8); Carbon Dioxide 28 mEq/L (19-29); Chloride 100 mEq/L (98-109); Globulin 3.4 g/dL (2.4-3.5); Glucose 119 mg/dL (70-99); Osmolality,Calculated 277 (280-300); Potassium 3.7 mEq/L (3.5-4.5); Sodium 133 mEq/L (136-145); eGFR For African Americans > 60 (> 60); eGFR For Non-African Americans > 60 (> 60)
[2017-03-14] MEDS: cephALEXin 500 MG CAPSULE PO SCH ×4 (08:21→20:58)
[2017-03-14] MEDS: Bisacodyl 10 MG RECTAL SUPPOSITORY RC SCH (08:23)
--- NOTE | 2017-03-14 09:35 | Internal Med Progress Note ---
Date of Encounter: 03/14/17 Time of Encounter: 09:29 - Assessment and plan (1) Left upper extremity deep vein thrombosis Current Visit: Yes Status: Acute Assessment and plan: Held Heparin and any anticoag due to hematuria will resume anti coag after Urology clearence Does need 3 months of anti coag therapy.. will talk to PCP too Coumadin might be ideal bridging with Lovenox due to his hematuria Qualifiers: Affected thrombotic vein of extremity: brachial Chronicity: acute Qualified Code(s): I82.622 - Acute embolism and thrombosis of deep veins of left upper extremity (2) Hematuria Current Visit: Yes Status: Acute Assessment and plan: Improving cont jason cath stable Hb Will cehck with Urology about d/c jason and when to resume anticoag Qualifiers: Qualified Code(s): R31.9 - Hematuria, unspecified (3) Syncope Current Visit: Yes Status: Acute Assessment and plan: Resolved no more syncopal episodes avoid B blockers Titrated his psych meds too If he develops repeat syncopal episodes may need holter monitor Qualifiers: Syncope type: unspecified Qualified Code(s): R55 - Syncope and collapse (4) Bradycardia Current Visit: Yes Status: Resolved Assessment and plan: Resolved avoid B blockers (5) HLD (hyperlipidemia) Current Visit: Yes Status: Chronic Qualifiers: Hyperlipidemia type: unspecified Qualified Code(s): E78.5 - Hyperlipidemia , unspecified (6) Schizophrenia Current Visit: Yes Status: Acute Assessment and plan: Doing well with current regimen need close f/u with psychiatrist as an out pt Qualifiers: Qualified Code(s): F20.9 - Schizophrenia, unspecified (7) Physical deconditioning Current Visit: Yes Status: Acute Assessment and plan: PT / OT eval need ECF placement for short term rehab - Subjective Interval history: 61 y/o M admitted with syncopal episode due to bradycardia and due to psychiatric medication side effect. Apparently patient did developed left brachial DVT due to peripheral IV infiltration of left elbow. Patient was started on heparin drip, couple of days later he developed severe hematuria for which heparin drip discontinued and held all anticoagulation. Patient was seen by urologist recommended to continue Jason catheter and hold anticoagulation for now. Today patient is more alert, awake and oriented times 3. His hematuria is improving, today it look more pinkish. Patient denied any chest pain or shortness of breath no abdominal pain - Constitutional Vitals: Temp Pulse Resp BP Pulse Ox 97.9 F 54 18 125/67 98 03/14/17 06:47 03/14/17 06:47 03/14/17 06:47 03/14/17 06:47 03/14/17 06:47 General appearance: Present: cooperative, A&O X 3, pleasant, no acute distress, answers questions appropriately - Respiratory Respiratory exam: Present: CTAB. Absent: rales, respiratory distress, rhonchi, wheezes - Cardiovascular Cardiovascular exam: Present: RRR, +S1, +S2 - GI/Abdominal GI/Abdominal exam: Present: normal bowel sounds, soft. Absent: distended, guarding, mass, rebound, rigid - Extremities Exam Additional comments: Mild swelling and tenderness around anticubital fossa region of left elbow noitced. - Neurological Exam Neurological exam: Present: reflexes normal, no focal deficits - Skin Skin exam: Absent: rash Internal Medicine: Result - Labs CBC & Chem 7: 03/14/17 06:25 03/14/17 06:25 Labs: Short CBC 03/14/17 Range/Units 06:25 WBC 8.8 (4.3-11.1) K/mcL Hgb 12.8 L (12.9-16.9) g/dL Hct 37.2 L (37.5-50.1) % Plt Count 266 (140-400) K/mcL Neutrophils # 6.8 (1.6-8.9) K/mcL BMP 03/14/17 06:25 Sodium 133 L Potassium 3.7 Chloride 100 Carbon Dioxide 28 BUN 12 Creatinine 0.87 Glucose 119 H Calcium 8.6 Liver Function 03/14/17 Range/Units 06:25 Total Bilirubin 0.6 (0.2-1.2) mg/dL AST 35 H (5-34) Units/L ALT 25 (0-55) Units/L Alkaline Phosphatase 78 (38-126) Units/L Albumin 2.6 L (3.5-5.0) g/dL - VTE Documentation of Mechanical Device: Intermittent pneumatic compression device Consult Discharge Plan - Plan Referrals: [facility] [Outside] Roger Toro MD [Primary Care Provider] -
--- NOTE | 2017-03-14 13:52 | Urology Progress Note ---
Date of Encounter: 03/14/17 Time of Encounter: 13:49 - Assessment and Plan (1) Hematuria Current Visit: Yes Status: Acute Assessment and plan: Improving. Continue catheter upon discharge. Okay to resume anticoagulation. If he has bleeding again, consider holding it in the future. He will need a cystoscopy in the office. Qualifiers: Qualified Code(s): R31.9 - Hematuria, unspecified Progress Note Narrative: Hematuria is improved today. Patient has improved mentation. Objective Initial Vital Signs Temp Pulse Resp BP Pulse Ox 97 F L 46 18 115/60 98 03/04/17 23:06 03/04/17 23:06 03/04/17 23:06 03/04/17 23:06 03/04/17 23:06 - General physical appearance Present: well developed, well nourished, no distress - Respiratory Present: normal respiratory effort - Abdomen Present: soft - Genitourinary Urine Appearance: Present: Clear (catheter in place.) - Labs 03/14/17 06:25 03/14/17 06:25 Diabetes panel 03/14/17 Range/Units 06:25 Sodium 133 L (136-145) mEq/L Potassium 3.7 (3.5-4.5) mEq/L Chloride 100 (98-109) mEq/L Carbon Dioxide 28 (19-29) mEq/L BUN 12 (8-26) mg/dL Creatinine 0.87 (0.72-1.25) mg/dL Glucose 119 H (70-99) mg/dL Calcium 8.6 (8.6-10.8) mg/dL AST 35 H (5-34) Units/L ALT 25 (0-55) Units/L Alkaline Phosphatase 78 (38-126) Units/L Albumin 2.6 L (3.5-5.0) g/dL Calcium panel 03/14/17 Range/Units 06:25 Calcium 8.6 (8.6-10.8) mg/dL Albumin 2.6 L (3.5-5.0) g/dL Pituitary panel 03/14/17 Range/Units 06:25 Sodium 133 L (136-145) mEq/L Potassium 3.7 (3.5-4.5) mEq/L Chloride 100 (98-109) mEq/L Carbon Dioxide 28 (19-29) mEq/L BUN 12 (8-26) mg/dL Creatinine 0.87 (0.72-1.25) mg/dL Glucose 119 H (70-99) mg/dL Calcium 8.6 (8.6-10.8) mg/dL Adrenal panel 03/14/17 Range/Units 06:25 Sodium 133 L (136-145) mEq/L Potassium 3.7 (3.5-4.5) mEq/L Chloride 100 (98-109) mEq/L Carbon Dioxide 28 (19-29) mEq/L BUN 12 (8-26) mg/dL Creatinine 0.87 (0.72-1.25) mg/dL Glucose 119 H (70-99) mg/dL Calcium 8.6 (8.6-10.8) mg/dL Total Bilirubin 0.6 (0.2-1.2) mg/dL AST 35 H (5-34) Units/L ALT 25 (0-55) Units/L Alkaline Phosphatase 78 (38-126) Units/L Albumin 2.6 L (3.5-5.0) g/dL - VTE Documentation of Mechanical Device: Intermittent pneumatic compression device Consult Discharge Plan - Plan Referrals: [facility] [Outside] Roger Toro MD [Primary Care Provider] -
--- NOTE | 2017-03-14 17:08 | Venous Imaging Report ---
UE Venous Duplex Patient Name:Markel Chavez Order Number:[id number] Procedure Date:03/13/2017 Date:1955ge:61 yrs Gender:Male Location:[facility] Room #: 3A13 Starch Dumper:Mariam Rodriguez RVT Referring MD:Jere Moreau MD cardiology clinical consultant:Roger Toro MD Reading MD:Doug Ramirez MD Secondary Indications: Risk Factors Yes/No Hypercholesterolemia Yes Impressions: Normal left upper extremity deep venous exam. Acute superficial venous thrombosis is present in the left cephalic vein. Normal contralateral subclavian vein. Recommendations: Test completed on 03/13/2017 at 6:15:02 pm. Critical findings reported to Jere Moreau by vocera page at 6:24:05 pm on 03/13/2017 by Mariam Rodriguez RVT. Findings Venous Duplex Results: Right: Venous imaging of the upper extremity reveals full patency and normal vessel compressibility of the right subclavian. Doppler signals in the evaluated veins were normal. Left: Venous imaging of the upper extremity reveals full patency and normal vessel compressibility of the left jugular, left subclavian, left axillary, left brachial, left basilic, left radial and left ulnar. Doppler signals in the evaluated veins were normal. The left cephalic demonstrates an incompressible vein. Flow was absent and it did not augment. Upper Extremity Venous Duplex Side Vein Compress Spontaneous Flow Augment Left Cephalic None Absent no Updated by Doug Ramirez MD on 03/14/2017 5:02:29 PM electronically signed on 03/14/2017 5:03:09 PM with status of Final
[2017-03-14] MEDS: traZODone 50 MG TABLET PO SCH (20:57)
[2017-03-15 04:08] LABS: Basophils # 0.1 K/mcL (0.0-0.2); Basophils % 0.7 %; Eosinophils # 0.2 K/mcL (0.0-0.6); Eosinophils % 2.1 %; Hematocrit 35.3 % (37.5-50.1); Hemoglobin 12.2 g/dL (12.9-16.9); Lymphocytes # 1.1 K/mcL (0.6-4.6); Lymphocytes % 14.6 %; Mean Corpuscular HGB Conc 34.6 g/dL (31.6-35.5); Mean Corpuscular Hemoglobin 31.5 pg (28.0-33.3); Mean Corpuscular Volume 91.2 fL (83.0-100.0); Mean Platelet Volume 9.1 fL (9.4-12.4); Monocytes # 0.6 K/mcL (0.0-1.3); Monocytes % 8.2 %; Neutrophils # 5.6 K/mcL (1.6-8.9); Platelet Count 278 K/mcL (140-400); Red Blood Count 3.87 M/mcL (4.19-5.50); Red Cell Distribution Width 12.7 % (11.5-14.5); Segmented Neutrophils % 72.4 %
[2017-03-15 04:21] LABS: Alanine Aminotransferase 58 Units/L (0-55); Albumin 2.4 g/dL (3.5-5.0); Albumin/Globulin Ratio 0.8 (1.1-2.2); Alkaline Phosphatase 66 Units/L (38-126); Aspartate Amino Transferase 56 Units/L (5-34); BUN/Creatinine Ratio 14 (6-26); Bilirubin,Total 0.5 mg/dL (0.2-1.2); Blood Urea Nitrogen 12 mg/dL (8-26); Calcium 8.5 mg/dL (8.6-10.8); Carbon Dioxide 28 mEq/L (19-29); Chloride 100 mEq/L (98-109); Globulin 2.9 g/dL (2.4-3.5); Glucose 122 mg/dL (70-99); Osmolality,Calculated 279 (280-300); Potassium 3.7 mEq/L (3.5-4.5); Sodium 134 mEq/L (136-145); Total Protein 5.3 g/dL (6.0-8.3); eGFR For African Americans > 60 (> 60); eGFR For Non-African Americans > 60 (> 60)
[2017-03-15] MEDS: Levothyroxine 25 MCG TABLET PO SCH (05:05)
--- NOTE | 2017-03-15 06:40 | Urology Progress Note ---
Date of Encounter: 03/15/17 Time of Encounter: 06:39 - Assessment and Plan (1) Hematuria Current Visit: Yes Status: Acute Assessment and plan: Hematuria seems to be resolved. Continue jason catheter upon discharge. F/u in clinic in 1 week for a catheter removal. will sign off. Please call if hematuria returns. Qualifiers: Qualified Code(s): R31.9 - Hematuria, unspecified Progress Note Narrative: Sleeping this morning. Urine has been clear. Objective Initial Vital Signs Temp Pulse Resp BP Pulse Ox 97 F L 46 18 115/60 98 03/04/17 23:06 03/04/17 23:06 03/04/17 23:06 03/04/17 23:06 03/04/17 23:06 - General physical appearance Present: well developed, well nourished, no distress - Genitourinary Urine Appearance: Present: Clear (Jason in place.) - Labs 03/15/17 03:45 03/15/17 03:45 Diabetes panel 03/14/17 03/15/17 Range/Units 06:25 03:45 Sodium 133 L 134 L (136-145) mEq/L Potassium 3.7 3.7 (3.5-4.5) mEq/L Chloride 100 100 (98-109) mEq/L Carbon Dioxide 28 28 (19-29) mEq/L BUN 12 12 (8-26) mg/dL Creatinine 0.87 0.83 (0.72-1.25) mg/dL Glucose 119 H 122 H (70-99) mg/dL Calcium 8.6 8.5 L (8.6-10.8) mg/dL AST 35 H 56 H (5-34) Units/L ALT 25 58 H (0-55) Units/L Alkaline Phosphatase 78 66 (38-126) Units/L Albumin 2.6 L 2.4 L (3.5-5.0) g/dL Calcium panel 03/14/17 03/15/17 Range/Units 06:25 03:45 Calcium 8.6 8.5 L (8.6-10.8) mg/dL Albumin 2.6 L 2.4 L (3.5-5.0) g/dL Pituitary panel 03/14/17 03/15/17 Range/Units 06:25 03:45 Sodium 133 L 134 L (136-145) mEq/L Potassium 3.7 3.7 (3.5-4.5) mEq/L Chloride 100 100 (98-109) mEq/L Carbon Dioxide 28 28 (19-29) mEq/L BUN 12 12 (8-26) mg/dL Creatinine 0.87 0.83 (0.72-1.25) mg/dL Glucose 119 H 122 H (70-99) mg/dL Calcium 8.6 8.5 L (8.6-10.8) mg/dL Adrenal panel 03/14/17 03/15/17 Range/Units 06:25 03:45 Sodium 133 L 134 L (136-145) mEq/L Potassium 3.7 3.7 (3.5-4.5) mEq/L Chloride 100 100 (98-109) mEq/L Carbon Dioxide 28 28 (19-29) mEq/L BUN 12 12 (8-26) mg/dL Creatinine 0.87 0.83 (0.72-1.25) mg/dL Glucose 119 H 122 H (70-99) mg/dL Calcium 8.6 8.5 L (8.6-10.8) mg/dL Total Bilirubin 0.6 0.5 (0.2-1.2) mg/dL AST 35 H 56 H (5-34) Units/L ALT 25 58 H (0-55) Units/L Alkaline Phosphatase 78 66 (38-126) Units/L Albumin 2.6 L 2.4 L (3.5-5.0) g/dL - VTE Documentation of Mechanical Device: Intermittent pneumatic compression device Consult Discharge Plan - Plan Referrals: [facility] [Outside] Roger Toro MD [Primary Care Provider] -
[2017-03-15] MEDS: *HR* Enoxaparin 80 MG/0.8 ML SYRINGE SQ SCH ×2 (09:41→16:26)
[2017-03-15] MEDS: cephALEXin 500 MG CAPSULE PO SCH ×3 (09:41→16:26)
[2017-03-15 12:02] VITALS: BP 145/73
--- NOTE | 2017-03-15 13:35 | Discharge Summary ---
Date of Encounter: 03/15/17 Time of Encounter: 10:00 - Discharge Diagnosis (1) Left upper extremity deep vein thrombosis Priority: Primary Status: Acute Qualifiers: Affected thrombotic vein of extremity: brachial Chronicity: acute Qualified Code(s): I82.622 - Acute embolism and thrombosis of deep veins of left upper extremity (2) Hematuria Priority: Secondary Status: Acute Qualifiers: Qualified Code(s): R31.9 - Hematuria, unspecified (3) Syncope Priority: Primary Status: Acute Qualifiers: Syncope type: unspecified Qualified Code(s): R55 - Syncope and collapse (4) Bradycardia Priority: Primary Status: Resolved (5) HLD (hyperlipidemia) Priority: Secondary Status: Chronic Qualifiers: Hyperlipidemia type: unspecified Qualified Code(s): E78.5 - Hyperlipidemia , unspecified (6) Schizophrenia Priority: Secondary Status: Acute Qualifiers: Qualified Code(s): F20.9 - Schizophrenia, unspecified (7) Physical deconditioning Priority: Secondary Status: Acute - Discharge Medications Prescriptions: Haloperidol 5 mg PO HS #10 tablet Home Medications: Levothyroxine [Synthroid] 25 mcg PO DAILY 03/03/16 [History] Simvastatin [Zocor] 20 mg PO HS 03/03/16 [History] Omeprazole [PriLOSEC] 20 mg PO DAILY 03/31/16 [History] Donepezil HCl [Aricept] 10 mg PO HS 03/05/17 [History] Lisinopril [Zestril] 5 mg PO DAILY 03/05/17 [History] Trazodone HCl 300 mg PO HS 03/05/17 [History] Benztropine Mesylate 2 mg PO HS 03/06/17 [History] Oxybutynin [Ditropan] 5 mg PO HS 03/06/17 [History] lamoTRIgine [Lamictal] 100 mg PO HS 03/06/17 [History] Acetaminophen [Tylenol] 325 mg PO Q6HR PRN #0 tablet 03/15/17 [Rx] Docusate [Colace] 200 mg PO BID PRN capsule 03/15/17 [Rx] Enoxaparin [Lovenox] 80 mg SQ Q12HR 4 Days 03/15/17 [Rx] Haloperidol 5 mg PO HS #10 tablet 03/15/17 [Rx] Warfarin [Coumadin] 5 mg PO DAILY@1800 tablet 03/15/17 [Rx] traZODone [TraZODone] 50 mg PO HS tablet 03/15/17 [Rx] Allergies/Adverse Reactions: Allergies No Known Allergies Allergy (Verified 03/04/17 09:07) Date of admission: 03/13/17 18:22 Primary care physician: Roger Toro MD Consults: Urologist - Patient Status Disposition: Transfer SNF Condition: Undetermined - Discharge [facility]ructions [facility] Roger Toro MD [Primary Care Provider] - Hospital course: Mr. Chavez is a 61 y/o M admitted with syncopal episode due to bradycardia and psychiatric medication side effect. Pt was admitted in the hospital and placed him on clinical research monitor. His bradycardia resolved, HR stayed in 60-70's all the time. Program Lead did evaluate the pt , did not recommend any pacemaker at this point, however recommend to stay away from B jaxon. Also pt was little confused in the begining due to his psychiatric medication. He did have negative stroke work up. He was seen by psychiatrist who titrated his medications. Apparently patient did developed left brachial DVT due to peripheral IV infiltration of left elbow. Patient was started on heparin drip, couple of days later he developed severe hematuria for which heparin drip discontinued and held all anticoagulation. Patient was seen by urologist recommended to continue Jason catheter and hold anticoagulation for now. Today patient is more alert, awake and oriented times 3. His hematuria is improving. At this point urologist cleared to resume anti coagulation for his Lt UE DVT, and continue jason cather until he sees them as an out pt in one week. Regarding anticoagulation sol we started him on Lovenox with 80mg BID , bridging with Coumadin 5mg daily.. Check PT / INR daily and discontinue Lovenox when INR reach therapeutic at 2.0. Since pt is going to have different attending at [facility] will sign out the nursing staff at [facility] regarding this instructions. - Time Spent with Patient Total time spent providing and/or coordinating discharge services: Greater than 30 minutes (spent 45 minutes on this pt's discharge summary since he does have multiple complex medical problems need lot of attention) - Constitutional Vitals: Temp Pulse Resp BP Pulse Ox 98.3 F 61 15 145/73 97 03/15/17 11:55 03/15/17 11:55 03/15/17 11:55 03/15/17 11:55 03/15/17 11:55 General appearance: Present: cooperative, A&O X 3, pleasant, no acute distress, answers questions appropriately - Respiratory Respiratory exam: Present: CTAB. Absent: accessory muscle use, rales, rhonchi, wheezes - Cardiovascular Cardiovascular exam: Present: RRR, +S1, +S2. Absent: diastolic murmur, gallop, rubs, systolic murmur - GI/Abdominal GI/Abdominal exam: Present: normal bowel sounds, soft. Absent: tenderness - Extremities Exam Additional comments: Improved swelling , erythema and tenderness in Left elbow - Psychiatric Psychiatric exam: Present: normal affect, normal mood. Absent: suicidal ideation - VTE Documentation of Mechanical Device: Intermittent pneumatic compression device
--- NOTE | 2017-03-15 13:45 | Physician Discharge Referral ---
ExtendedCare Referral Info Transfer To: F Provider in Charge after Transfer: Other Institutional Level of Care: Skilled - Diagnosis (1) Left upper extremity deep vein thrombosis Status: Acute (2) Hematuria Status: Acute (3) Syncope Status: Acute (4) Bradycardia Status: Resolved (5) HLD (hyperlipidemia) Status: Chronic (6) Schizophrenia Status: Acute (7) Physical deconditioning Status: Acute - Transfer Medications Prescriptions: Haloperidol 5 mg PO HS #10 tablet Home Medications: Levothyroxine [Synthroid] 25 mcg PO DAILY 03/03/16 [History] Simvastatin [Zocor] 20 mg PO HS 03/03/16 [History] Omeprazole [PriLOSEC] 20 mg PO DAILY 03/31/16 [History] Donepezil HCl [Aricept] 10 mg PO HS 03/05/17 [History] Lisinopril [Zestril] 5 mg PO DAILY 03/05/17 [History] Trazodone HCl 300 mg PO HS 03/05/17 [History] Benztropine Mesylate 2 mg PO HS 03/06/17 [History] Oxybutynin [Ditropan] 5 mg PO HS 03/06/17 [History] lamoTRIgine [Lamictal] 100 mg PO HS 03/06/17 [History] Acetaminophen [Tylenol] 325 mg PO Q6HR PRN #0 tablet 03/15/17 [Rx] Docusate [Colace] 200 mg PO BID PRN capsule 03/15/17 [Rx] Enoxaparin [Lovenox] 80 mg SQ Q12HR 4 Days 03/15/17 [Rx] Haloperidol 5 mg PO HS #10 tablet 03/15/17 [Rx] Warfarin [Coumadin] 5 mg PO DAILY@1800 tablet 03/15/17 [Rx] traZODone [TraZODone] 50 mg PO HS tablet 03/15/17 [Rx] Allergies/Adverse Reactions: Allergies No Known Allergies Allergy (Verified 03/04/17 09:07) - Respiratory Orders Smoking Cessation: Smoking cessation has been advised. For more information, call the [place] Tobacco Quit Line at 0-961-QZNJ-NOW. CERTIFICATION: I certify that the transfer of the above named patient to an Extended Care Facility is necessary for the continuing treatment of the diagnosis listed. The above information is true and accurate reflection of patient's current condition. Confidential - Redisclosure prohibited without a patient's written consent.
[2017-03-15] MEDS ORDERED: *HR* Warfarin 5 MG TABLET PO SCH (18:00)
== END 2017-03-15 16:52 | DRG 300 ==
LOC: EMEROO 23:04 → 3BNU 23:04 → SUATTDRO 03-05 01:06 → 3BNU 03-05 01:40 → 3ANU 03-09 18:53
PROVIDERS: ADMIT Internal Medicine; ATTEND Internal Medicine

== ENCOUNTER 2018-05-24 18:26 | Observation (INO) ==
[2018-05-24] MEDS ORDERED: 0.9 % Sodium Chloride 1,000 ML IVC ONE ×2 (18:58→21:51)
[2018-05-24] MEDS ORDERED: Ondansetron 4 MG/2 ML VIAL IVP ONE (19:15)
[2018-05-24] MEDS ORDERED: Ketorolac 15 MG/ML VIAL IVP ONE (19:15)
[2018-05-24] MEDS ORDERED: Isovue-370 500 ML INFUS..BTL IV ONE (19:15)
--- NOTE | 2018-05-24 19:19 | Emergency Department Note ---
Disposition Clinical Impression: Pancreatitis Qualifiers: Chronicity: acute Pancreatitis type: unspecified pancreatitis type Acute pancreatitis complication: unspecified Qualified Code(s): K85.90 - Acute pancreatitis without necrosis or infection, unspecified Fever Qualifiers: Fever type: unspecified Qualified Code(s): R50.9 - Fever, unspecified Leukocytosis Qualifiers: Leukocytosis type: unspecified Qualified Code(s): D72.829 - Elevated white blood cell count, unspecified Disposition: Admitted As Inpatient Condition: Good Referrals: Roger Toro MD [Primary Care Provider] - Forms: ED Satisfaction Letter, Work/School Release Abdominal Pain HPI - General Chief Complaint: ED Abdominal Pain Stated Complaint: ABd pain Time Seen by Provider: 05/24/18 18:47 Source: patient Mode of arrival: private vehicle Limitations: no limitations Nursing Notes Reviewed: Yes Vital Signs Reviewed: Yes - History of Present Illness HPI Narrative: 62-year-old male history of dementia presents to the ER with a complaint of 3 days of abdominal pain. Pain is described as across his abdomen at the level of his belly button. Reports it is been rather constant since onset. No crepitus chills and sweats this morning. He was nauseous yesterday without vomiting or diarrhea. No bowel movement for 3 days. Surgical history of a right inguinal hernia repair approximately 15 years ago. Denies dysuria or hematuria. No history of inflammatory bowel disease. Pt Subjective Complaint: abdominal pain Onset (ago): day(s) Consistency: constant Location: periumbilical Pain Severity: moderate Pain Scale: 8 Radiation: none Migration to: no migration Improves with: nothing Worsens with: nothing Associated symptoms: Reports: nausea, chills, constipation. Denies: vomiting, diarrhea, fever, dysuria, hematuria Treatments prior to arrival: none - Related Data Home Medications Medication Instructions Recorded Confirmed Donepezil HCl [Aricept] 10 mg PO HS 03/05/17 05/24/18 Paliperidone Palmitate [Invega 117 mg IM Q4W 04/26/18 05/24/18 Sustenna] Allergies Allergy/AdvReac Type Severity Reaction Status Date / Time trazodone Allergy Unconscious Verified 04/04/17 08:13 All systems ED: reviewed and negative except as stated. Constitutional: Reports: chills. Denies: fever Gastrointestinal: Reports: abdominal pain, nausea, constipation. Denies: vomiting, diarrhea Genitourinary: Denies: dysuria, hematuria Abdominal Pain PMH - Past Medical History Medical history: Reports: arthritis, GERD, hyperlipidemia Male Surgical History: Reports: herniorrhaphy Psychiatric history: Reports: schizophrenia - Social History Smoking status: Never smoker Alcohol use: Reports: none Drug use: Reports: none Physical Exam - General Limitations: no limitations General appearance: alert, in no apparent distress - Head Head exam: atraumatic, normocephalic - Eye Eye exam: Present: normal appearance - ENT ENT exam: normal exam - Neck Neck exam: Present: normal inspection - Chest Chest inspection: Present: normal inspection, symmetric chest wall rise - Respiratory Respiratory exam: Present: normal lung sounds bilaterally - Cardiovascular Cardiovascular exam: Present: regular rate, normal rhythm, normal heart sounds - Abdominal Exam Abdominal exam: Present: soft, tenderness (Patient has tenderness at the level of the umbilicus in a bandlike distribution over his abdomen.). Absent: guarding, rigidity - Extremities Exam Extremities exam: Present: normal inspection, full ROM - Expanded Upper Extremity Exam Shoulder exam: Present: normal inspection, full ROM Arm exam: Present: normal inspection, full ROM Elbow exam: Present: normal inspection, full ROM Forearm/Wrist exam: Present: normal inspection, full ROM Hand exam: Present: normal inspection, full ROM - Expanded Lower Extremity Exam Hip/Pelvis exam: Present: normal inspection, full ROM Upper leg exam: Present: normal inspection, full ROM Knee exam: Present: normal inspection, full ROM Lower leg exam: Present: normal inspection, full ROM Ankle exam: Present: normal inspection, full ROM Foot/toe exam: Present: normal inspection, full ROM Neurovascular/Tendon exam: Absent: sensory deficit - Skin Skin exam: Present: warm, dry Course Course Narrative: Patient seen and examined. Vital signs reviewed. Plan for CT imaging, labs, urinalysis. IV fluids, Toradol and Zofran here. - Reevaluation(s) Reevaluation #1: Discussed results of imaging and lab work with the patient. Agreeable with plan. Still having some pain. Ordered fentanyl and additional fluids. Vital Signs Temperature 101.8 F H 05/24/18 18:32 Pulse Rate 87 05/24/18 18:32 Respiratory Rate 16 05/24/18 18:32 Blood Pressure 155/80 05/24/18 18:32 O2 Sat by Pulse Oximetry 97 05/24/18 18:32 Temperature 101.8 F H 05/24/18 18:52 Pulse Rate 87 05/24/18 18:52 Respiratory Rate 16 05/24/18 18:52 Blood Pressure 155/80 05/24/18 18:52 O2 Sat by Pulse Oximetry 97 05/24/18 18:52 Oxygen Delivery Oxygen Delivery Room Air Abdominal Pain - MDM Narrative Medical decision making narrative: 62-year-old male presenting with 3 days of periumbilical abdominal pain with nausea and chills. Imaging here with evidence of acute pancreatitis. He was noted to be febrile with a leukocytosis. Lipase is marginally elevated. History exam and imaging consistent with pancreatitis. Patient given IV fluids , Toradol and central for pain as well as Zofran for nausea. He is admitted to the hospitalist service. - Lab Data Lab results reviewed: Yes I reviewed the patient's lab results. Result diagrams: 05/24/18 19:40 05/24/18 19:40 Lab Results 05/24/18 05/24/18 05/24/18 Range/Units 19:40 19:40 19:40 WBC 14.7 H (4.3-11.1) K/mcL RBC 4.74 (4.19-5.50) M/mcL Hgb 14.4 (12.9-16.9) g/dL Hct 42.7 (37.5-50.1) % MCV 90.1 (83.0-100.0) fL MCH 30.4 (28.0-33.3) pg MCHC 33.7 (31.6-35.5) g/dL RDW 14.3 (11.5-14.5) % Plt Count 270 (140-400) K/mcL MPV 9.9 (9.4-12.4) fL Immature Gran % 1.6 (0-4) % Seg Neutrophils % 82.4 % Lymphocytes % 6.3 % Monocytes % 9.1 % Eosinophils % 0.2 % Basophils % 0.4 % Neutrophils # 12.1 H (1.6-8.9) K/mcL Lymphocytes # 0.9 (0.6-4.6) K/mcL Monocytes # 1.3 (0.0-1.3) K/mcL Eosinophils # 0.0 (0.0-0.6) K/mcL Basophils # 0.1 (0.0-0.2) K/mcL PT 13.7 H (9.4-12.1) Seconds INR 1.2 APTT 32.0 (26.0-36.0) Seconds Sodium 131 L (136-145) mEq/L Potassium 4.4 (3.5-5.1) mEq/L Chloride 99 (98-107) mEq/L Carbon Dioxide 25 (23-29) mEq/L BUN 22 (8-23) mg/dL Creatinine 1.25 (0.70-1.30) mg/dL Est GFR ( Amer) > 60 (> 60) Est GFR (Non-Af Amer) 59 L (> 60) BUN/Creatinine Ratio 18 (6-26) Glucose 118 H (70-105) mg/dL Calculated Osmolality 276 L (280-300) Lactic Acid (0.5-2.2) mmol/L Calcium 9.4 (8.6-10.3) mg/dL Total Bilirubin 0.9 (0.3-1.0) mg/dL Direct Bilirubin 0.2 (0.0-0.2) mg/dL Indirect Bilirubin 0.7 (0.0-1.2) mg/dL AST 18 (13-39) Units/L ALT 14 (7-52) Units/L Alkaline Phosphatase 62 (34-104) Units/L Serum Total Protein 7.4 (6.4-8.9) g/dL Albumin 4.0 (3.5-5.7) g/dL Globulin 3.4 (2.4-3.5) g/dL Albumin/Globulin Ratio 1.2 (1.1-2.2) Lipase 113 H (11-82) Units/L Urine Color (Yellow) Urine Clarity (Clear) Urine pH (5.0-8.0) pH Units Ur Specific Hulbert (1.010-1.025) Urine Protein (Neg-Trace) mg/dL Urine Glucose (UA) (Normal) mg/dL Urine Ketones (Negative) mg/dL Urine Blood (Negative) Urine Nitrite (Negative) Urine Bilirubin (Negative) Urine Urobilinogen (Normal) mg/dL Ur Leukocyte Esterase (Negative) Urine Microscopic RBC (0-3) per hpf Urine Microscopic WBC (0-3) per hpf Ur Squamous Epith Cells (None-Few) per lpf Urine Bacteria (None-Few) per hpf Hyaline Casts (None-Few) per lpf Urine Mucus (Few) Ur Culture Indicated? (NO) 05/24/18 05/24/18 Range/Units 20:19 20:33 WBC (4.3-11.1) K/mcL RBC (4.19-5.50) M/mcL Hgb (12.9-16.9) g/dL Hct (37.5-50.1) % MCV (83.0-100.0) fL MCH (28.0-33.3) pg MCHC (31.6-35.5) g/dL RDW (11.5-14.5) % Plt Count (140-400) K/mcL MPV (9.4-12.4) fL Immature Gran % (0-4) % Seg Neutrophils % % Lymphocytes % % Monocytes % % Eosinophils % % Basophils % % Neutrophils # (1.6-8.9) K/mcL Lymphocytes # (0.6-4.6) K/mcL Monocytes # (0.0-1.3) K/mcL Eosinophils # (0.0-0.6) K/mcL Basophils # (0.0-0.2) K/mcL PT (9.4-12.1) Seconds INR APTT (26.0-36.0) Seconds Sodium (136-145) mEq/L Potassium (3.5-5.1) mEq/L Chloride (98-107) mEq/L Carbon Dioxide (23-29) mEq/L BUN (8-23) mg/dL Creatinine (0.70-1.30) mg/dL Est GFR ( Amer) (> 60) Est GFR (Non-Af Amer) (> 60) BUN/Creatinine Ratio (6-26) Glucose (70-105) mg/dL Calculated Osmolality (280-300) Lactic Acid 1.2 (0.5-2.2) mmol/L Calcium (8.6-10.3) mg/dL Total Bilirubin (0.3-1.0) mg/dL Direct Bilirubin (0.0-0.2) mg/dL Indirect Bilirubin (0.0-1.2) mg/dL AST (13-39) Units/L ALT (7-52) Units/L Alkaline Phosphatase (34-104) Units/L Serum Total Protein (6.4-8.9) g/dL Albumin (3.5-5.7) g/dL Globulin (2.4-3.5) g/dL Albumin/Globulin Ratio (1.1-2.2) Lipase (11-82) Units/L Urine Color Dark Yellow (Yellow) Urine Clarity Cloudy A (Clear) Urine pH 5.5 (5.0-8.0) pH Units Ur Specific Hulbert 1.025 (1.010-1.025) Urine Protein 100 H (Neg-Trace) mg/dL Urine Glucose (UA) 250 H (Normal) mg/dL Urine Ketones Trace H (Negative) mg/dL Urine Blood Small H (Negative) Urine Nitrite Negative (Negative) Urine Bilirubin Small H (Negative) Urine Urobilinogen Normal (Normal) mg/dL Ur Leukocyte Esterase Negative (Negative) Urine Microscopic RBC 5-15 H (0-3) per hpf Urine Microscopic WBC 5-15 H (0-3) per hpf Ur Squamous Epith Cells Many H (None-Few) per lpf Urine Bacteria None Seen (None-Few) per hpf Hyaline Casts Few (None-Few) per lpf Urine Mucus Few (Few) Ur Culture Indicated? NO (NO) - Radiology Data Radiology results reviewed: Yes I reviewed the patient's radiology results. Abdomen/Pelvis CT 05/24/18 19:15 IMPRESSION: 1. Findings compatible with acute pancreatitis. No organized fluid collections identified at this time. 2. Redemonstration of low-attenuation right adrenal nodule most suggestive of adrenal adenoma. D/ / Nicola Frank MD / Nicola Frank MD Interpreting Provider: Nicola Frank MD S.Sourav.Eliza - S.[email or web address] Situation: Demographics, MOA Background: Presenting Complaint, Relevant PMH, Meds, & Allergies Assessment: Vital Signs, Course and respsone to treatment, Exam Concerns, Patient/Family Expectation, Pertinant Lab Results Recommendation: Barrier(s) to disposition, Recommendation based on pending studies, treatments, or consults S.B.AJosephine Report Given to: Dr. Christina Garrido Repor Time: 22:43 (Recommends to initiate meropenem) Attestation Statement - Attestation Attestation: I examined this patient and my medical decision-making was reviewed with the Resident Physician, Dr. Xie. I agree with the documented findings, disposition and treatment plan as described except to the extent set forth below. Patient is a 62-year-old white male who presents emergency Department with a 3 day history of mid abdominal pain associated with nausea. Patient states the pain is been constant, nonradiating, he denies any vomiting and reports mild constipation, no significant bowel movement in the past 72 hours. Patient denies any fevers or chills until about 24 hours ago when he began to have some sweats and shaking he reported at home and was febrile on arrival to the ED today. Patient denies any chest pain pressure or heaviness, no cough or shortness of breath, no urinary symptoms or flank pain. I agree with patient's physical exam findings as documented. On my assessment patient had received pain medication but and was denying any current abdominal pain but did have some mild tenderness to palpation just below the umbilicus without guarding rebound or rigidity and positive bowel sounds. Patient underwent full lab evaluation including urinalysis and CT abdomen and pelvis to rule out intra-abdominal pathology. Patient has had a remote hernia repair but no other abdominal surgeries in the past. No history of significant bowel disease. Patient's lab evaluation shows a mild leukocytosis with left shift, mild elevation in his lipase and CT imaging confirmed acute pancreatitis with visible inflammation and trace free fluid surrounding the pancreas with no obvious abscess. Patient has no right upper quadrant pain, no history of alcohol use. Patient will be admitted for acute pancreatitis case was discussed with hospitalist to accept the patient for admission for further evaluation and management.
[2018-05-24 19:56] LABS: Basophils # 0.1 K/mcL (0.0-0.2); Basophils % 0.4 %; Eosinophils % 0.2 %; Hematocrit 42.7 % (37.5-50.1); Hemoglobin 14.4 g/dL (12.9-16.9); Immature Granulocytes % 1.6 % (0-4); Lymphocytes # 0.9 K/mcL (0.6-4.6); Lymphocytes % 6.3 %; Mean Corpuscular HGB Conc 33.7 g/dL (31.6-35.5); Mean Corpuscular Hemoglobin 30.4 pg (28.0-33.3); Mean Corpuscular Volume 90.1 fL (83.0-100.0); Mean Platelet Volume 9.9 fL (9.4-12.4); Monocytes # 1.3 K/mcL (0.0-1.3); Monocytes % 9.1 %; Neutrophils # 12.1 K/mcL (1.6-8.9); Platelet Count 270 K/mcL (140-400); Red Blood Count 4.74 M/mcL (4.19-5.50); Red Cell Distribution Width 14.3 % (11.5-14.5); Segmented Neutrophils % 82.4 %
[2018-05-24 20:04] LABS: INR 1.2; Prothrombin Time 13.7 Seconds (9.4-12.1)
[2018-05-24 20:24] LABS: Alanine Aminotransferase 14 Units/L (7-52); Albumin/Globulin Ratio 1.2 (1.1-2.2); Alkaline Phosphatase 62 Units/L (34-104); Aspartate Amino Transferase 18 Units/L (13-39); BUN/Creatinine Ratio 18 (6-26); Bilirubin,Direct 0.2 mg/dL (0.0-0.2); Bilirubin,Indirect 0.7 mg/dL (0.0-1.2); Bilirubin,Total 0.9 mg/dL (0.3-1.0); Blood Urea Nitrogen 22 mg/dL (8-23); Calcium 9.4 mg/dL (8.6-10.3); Carbon Dioxide 25 mEq/L (23-29); Chloride 99 mEq/L (98-107); Globulin 3.4 g/dL (2.4-3.5); Glucose 118 mg/dL (70-105); Osmolality,Calculated 276 (280-300); Potassium 4.4 mEq/L (3.5-5.1); Sodium 131 mEq/L (136-145); Total Protein 7.4 g/dL (6.4-8.9); eGFR For Non-African Americans 59 (> 60)
[2018-05-24 20:38] LABS: Bilirubin,Urine Small (Negative); Blood,Urine Small (Negative); Clarity,Urine Cloudy (Clear); Color,Urine Dark Yellow (Yellow); Glucose,Urine (UA) 250 mg/dL (Normal); Ketones,Urine Trace mg/dL (Negative); Leukocyte Esterase,Urine Negative (Negative); Nitrite,Urine Negative (Negative); PH,Urine 5.5 pH Units (5.0-8.0); Protein,Urine 100 mg/dL (Neg-Trace); Specific Gravity,Urine 1.025 (1.010-1.025); Urobilinogen,Urine Normal (Normal)
[2018-05-24 20:39] LABS: Bacteria,Urine None Seen per hpf (None-Few); Squamous Epithelial Cell,Urine Many per lpf (None-Few)
[2018-05-24 20:52] LABS: Hyaline Casts,Urine Few per lpf (None-Few); Mucus,Urine Few (Few)
[2018-05-24] MEDS ORDERED: *HR* FentaNYL (PF) 100 MCG/2 ML VIAL IVP ONE (22:15)
[2018-05-24 22:18] LABS: Lipase 113 Units/L (11-82)
[2018-05-25] MEDS ORDERED: Ondansetron 4 MG/2 ML VIAL IVP PRN (02:14)
[2018-05-25] MEDS ORDERED: *HR* FentaNYL (PF) 100 MCG/2 ML VIAL IVP PRN (02:14)
[2018-05-25] MEDS ORDERED: Meropenem 1,000 MG in Water for inj. (sterile) 20 ML 10 ML IVP ONE (03:00)
[2018-05-25] MEDS ORDERED: Naloxone 0.4 MG/ML INJ IVP PRN (04:55)
[2018-05-25] MEDS ORDERED: *HR* Promethazine 25 MG/ML VIAL IVP PRN (05:00)
--- NOTE | 2018-05-25 05:07 | Internal Med History&Physical ---
Date of Encounter: 05/25/18 Time of Encounter: 05:02 Internal Medicine - H&P: HPI Chief complaint: abdominal pain Admitted From: Emergency Dept Plans for Post Hospital Care: Home History of present illness: Mr. Chavez is a 62 year old male who presents to the ER tonight with complaints of abdominal pain and nausea for about 3 days. He has had no vomiting or diarrhea. He has had no reported fevers. Because of pain persistence and increasing severity, he came to the ER. Workup in ER was pertinent for finding of acute pancreatitis based upon imaging and laboratory evaluation. He was subsequently admitted to hospitalist service. Upon my assessment of the patient, pain is controlled and he is sleeping. He is easily arousable and confirms the above history. He denies any alcohol use whatsoever. He used to drink alcohol, but he quit about 20 years ago. He denies any prior history of gallstones, peptic ulcer disease, gastritis, or history of GERD. Regarding the abdominal pain, he states it was midepigastric and periumbilical. He denies any fevers, chills, or night sweats. He denies any hematemesis, melena, or hematochezia. Appetite has been diminished, and his fluid intake has been diminished as well. He denies any dysuria or hematuria. Past Med Surg Social Fam HX - Past Medical History Attestation: Yes The following information was validated with the patient. Source: patient, old records reviewed Medical history: arthritis, GERD, hyperlipidemia Psychiatric history: schizophrenia - Past Surgical History Surgical History: herniorrhaphy - Social History Smoking Status: Never smoker Smokeless Tobacco Status: No Alcohol use: none Drug use: none Current living situation: Home Activity Level: Independent ambulation Recent Out of Country Travel Within the Last 8 Weeks: No - Family History Father Hx Family Cardiac Disorders: Yes (mi) Mother History Unknown: Yes Living Status: Internal Medicine - H&P: Meds Donepezil HCl [Aricept] 10 mg PO HS 03/05/17 [History] Paliperidone Palmitate [Invega Sustenna] 117 mg IM Q4W 04/26/18 [History] 3 Allergy/AdvReac Type Severity Reaction Status Date / Time trazodone Allergy Mild dizzinesss Verified 05/25/18 01:42 - Constitutional Constitutional: no chills, no fever(s), no night sweats - EENT Eyes: no blurry vision, no change in vision Ears: no ear pain, no tinnitus Nose, mouth and throat: no nasal congestion, no nasal discharge, no sore throat - Cardiovascular Cardiovascular ROS IM: no chest pain, no dyspnea, no orthopnea, no syncope - Respiratory Respiratory: no cough, no hemoptysis, no wheezing, no chest congestion, no excessive phlegm production - Gastrointestinal Gastrointestinal: abdominal pain, nausea, no diarrhea, no heartburn, no hematemesis, no hematochezia, no melena, no vomiting - Genitourinary Genitourinary ROS male: no dysuria, no flank pain, no hematuria - Musculoskeletal Musculoskeletal ROS IM: no arthralgias, no back pain - Integumentary Integumentary IM: no rash, no jaundice - Neurological Neurological ROS: no dizziness, no focal weakness, no frequent falls, no headache(s) - Psychiatric Psychiatric: no anxiety, no depression - Endocrine Endocrine IM: no polydipsia, no polyphagia, no polyuria - Hematologic/Lymphatic Hematologic/Lymphatic: no easy bruising - Allergic/Immunologic Allergic/Immunologic: GI upset with certain foods, no wheezing - Constitutional Vitals: Temp Pulse Resp BP Pulse Ox 98.0 F 61 15 118/70 96 05/25/18 04:34 05/25/18 04:34 05/25/18 04:34 05/25/18 04:34 05/25/18 04:34 General appearance: Present: cooperative, mild distress, A&O X 3, pleasant, answers questions appropriately Exam: mildly ill; non-toxic - Head Head exam: Present: atraumatic, normal inspection - Eye Eye exam: Present: EOMI, PERRL. Absent: scleral icterus Pupils: Present: normal accommodation - ENT ENT exam: Present: mucous membranes dry, normal exam, normal oropharynx - Neck Neck exam general surgery: Present: full ROM, supple. Absent: tenderness, nuchal rigidity, thyromegaly - Respiratory Respiratory exam: Present: CTAB. Absent: chest wall tenderness, rales, rhonchi , wheezes - Cardiovascular Cardiovascular exam: Present: RRR, +S1, +S2. Absent: diastolic murmur, systolic murmur - GI/Abdominal GI/Abdominal exam: Present: hypoactive bowel sounds, soft, tenderness (mild epigastric pain). Absent: guarding, hepatomegaly, mass, rebound, splenomegaly, no peritoneal signs - Extremities Exam Extremities exam: Present: warm, radial pulses palpable and symmetrical. Absent : calf tenderness, joint swelling, pedal edema, tenderness - Back Exam Back exam: Absent: CVA tenderness (L), CVA tenderness (R) - Neurological Exam Neurological exam: Present: alert, CN II-XII intact, oriented X3, no focal deficits - Psychiatric Psychiatric exam: Present: flat affect - Skin Skin exam: Present: dry, intact, warm. Absent: rash Internal Med - H&P Results - Labs CBC & Chem 7: 05/24/18 19:40 05/24/18 19:40 - Diagnostic Studies CT scan - abdomen Status: image reviewed by me (acute pancreatitis) - Assessment and plan (1) Pancreatitis Current Visit: Yes Status: Acute Assessment and plan: 1. Will keep npo, start IVF, continue anti-emetic control, and continue IV pain control. 2. Will order GB ultrasound to evaluate for GB stones. 3. Given the elevated WBC and fever, will treat with Meropenem. Blood cultures ordered in ER per my request. 4. Will trend amylase and lipase levels. Qualifiers: Chronicity: acute Pancreatitis type: unspecified pancreatitis type Acute pancreatitis complication: unspecified Qualified Code(s): K85.90 - Acute pancreatitis without necrosis or infection, unspecified (2) Fever Current Visit: Yes Status: Acute Assessment and plan: 1. Blood cultures and antibiotics as above. 2. Monitor clinically and trend CBC. 3. May need surgical consultation if there is a concern for pancreatic complications. Qualifiers: Fever type: unspecified Qualified Code(s): R50.9 - Fever, unspecified (3) DVT prophylaxis Current Visit: Yes Status: Acute Assessment and plan: 1. Heparin SQ.
[2018-05-25] MEDS: *HR* Heparin 5,000 UNIT/ML VIAL SQ SCH ×2 (05:42→17:21)
[2018-05-25] MEDS: 0.9 % Sodium Chloride 1,000 ML IVC SCH ×2 (05:42→15:20)
[2018-05-25] MEDS: Pantoprazole 40 MG VIAL IVP SCH ×2 (05:46→17:22)
[2018-05-25 06:08] LABS: Basophils % 0.4 %; Eosinophils # 0.1 K/mcL (0.0-0.6); Eosinophils % 1.2 %; Hematocrit 39.2 % (37.5-50.1); Hemoglobin 12.9 g/dL (12.9-16.9); Immature Granulocytes % 1.1 % (0-4); Lymphocytes # 1.2 K/mcL (0.6-4.6); Lymphocytes % 10.5 %; Mean Corpuscular HGB Conc 32.9 g/dL (31.6-35.5); Mean Corpuscular Hemoglobin 30.2 pg (28.0-33.3); Mean Corpuscular Volume 91.8 fL (83.0-100.0); Mean Platelet Volume 9.6 fL (9.4-12.4); Monocytes # 1.2 K/mcL (0.0-1.3); Monocytes % 10.8 %; Neutrophils # 8.5 K/mcL (1.6-8.9); Platelet Count 232 K/mcL (140-400); Red Blood Count 4.27 M/mcL (4.19-5.50); Red Cell Distribution Width 14.4 % (11.5-14.5)
[2018-05-25 06:46] LABS: Amylase 34 Units/L (29-103); Lipase 64 Units/L (11-82)
[2018-05-25 06:47] LABS: Alanine Aminotransferase 12 Units/L (7-52); Albumin 3.4 g/dL (3.5-5.7); Albumin/Globulin Ratio 1.2 (1.1-2.2); Alkaline Phosphatase 54 Units/L (34-104); Aspartate Amino Transferase 11 Units/L (13-39); BUN/Creatinine Ratio 21 (6-26); Blood Urea Nitrogen 23 mg/dL (8-23); Calcium 8.4 mg/dL (8.6-10.3); Carbon Dioxide 23 mEq/L (23-29); Chloride 104 mEq/L (98-107); Chol/HDL Ratio 3.9 (0-4.9); Cholesterol 167 mg/dL (< 200); Globulin 2.8 g/dL (2.4-3.5); Glucose 117 mg/dL (70-105); HDL Cholesterol 43 mg/dL (40-59); LDL Cholesterol,Calculated 113 mg/dL (0-99); Osmolality,Calculated 281 (280-300); Potassium 4.3 mEq/L (3.5-5.1); Sodium 133 mEq/L (136-145); Total Protein 6.2 g/dL (6.4-8.9); Triglycerides 53 mg/dL (< 150); eGFR For Non-African Americans > 60 (> 60)
[2018-05-25] MEDS ORDERED: Meropenem 500 MG in Water for inj. (sterile) 20 ML 5 ML IVP SCH (08:00)
--- NOTE | 2018-05-25 15:39 | Event Note ---
Date of Encounter: 05/25/18 Time of Encounter: 15:37 Patient is clinically doing better today. Pain is well controlled. We will start him on clears and see how he does. If he tolerates clears, will advance diet later this evening. Anticipate discharge tomorrow if patient's symptoms continued to improve. His lipase is normal today. Abdomen is soft nontender. We will stop antibiotics at this time.
[2018-05-26] MEDS: *HR* Heparin 5,000 UNIT/ML VIAL SQ SCH (06:00)
[2018-05-26] MEDS: Pantoprazole 40 MG VIAL IVP SCH (06:01)
[2018-05-26 06:56] VITALS: BP 113/68
[2018-05-26 07:13] LABS: Basophils % 0.5 %; Eosinophils # 0.2 K/mcL (0.0-0.6); Eosinophils % 2.3 %; Hematocrit 33.3 % (37.5-50.1); Immature Granulocytes % 1.3 % (0-4); Lymphocytes # 1.2 K/mcL (0.6-4.6); Lymphocytes % 13.8 %; Mean Corpuscular Hemoglobin 29.6 pg (28.0-33.3); Mean Corpuscular Volume 89.5 fL (83.0-100.0); Monocytes # 0.8 K/mcL (0.0-1.3); Monocytes % 9.8 %; Neutrophils # 6.1 K/mcL (1.6-8.9); Platelet Count 221 K/mcL (140-400); Red Blood Count 3.72 M/mcL (4.19-5.50); Red Cell Distribution Width 14.2 % (11.5-14.5); Segmented Neutrophils % 72.3 %
[2018-05-26 07:24] LABS: Alanine Aminotransferase 12 Units/L (7-52); Albumin 2.9 g/dL (3.5-5.7); Albumin/Globulin Ratio 1.1 (1.1-2.2); Alkaline Phosphatase 58 Units/L (34-104); Aspartate Amino Transferase 12 Units/L (13-39); BUN/Creatinine Ratio 17 (6-26); Bilirubin,Total 0.7 mg/dL (0.3-1.0); Blood Urea Nitrogen 19 mg/dL (8-23); Carbon Dioxide 22 mEq/L (23-29); Chloride 104 mEq/L (98-107); Globulin 2.7 g/dL (2.4-3.5); Glucose 128 mg/dL (70-105); Lipase 33 Units/L (11-82); Osmolality,Calculated 278 (280-300); Potassium 4.3 mEq/L (3.5-5.1); Sodium 132 mEq/L (136-145); Total Protein 5.6 g/dL (6.4-8.9); eGFR For Non-African Americans > 60 (> 60)
--- NOTE | 2018-05-26 09:06 | Discharge Summary ---
- NOTES TO OUTPATIENT PROVIDER Notes to Outpatient Provider: Patient was hospitalized for acute pancreatitis. He had an elevated WBC count but his CT scan of abdomen and pelvis did not show any signs of necrosis. Clear cause for his pancreatitis has not been identified so it is most likely idiopathic. Patient is now tolerating oral diet and is pain-free. He is stable to be discharged home. Orders not resulted at time of discharge: Pending orders 05/25/18 02:14 Culture,Urine [RM] Stat Date of Encounter: 05/26/18 Time of Encounter: 09:04 - Discharge Diagnosis (1) Pancreatitis Priority: Primary Status: Acute Qualifiers: Chronicity: acute Pancreatitis type: idiopathic Acute pancreatitis complication: no infection or necrosis Qualified Code(s): K85.00 - Idiopathic acute pancreatitis without necrosis or infection (2) DVT prophylaxis Priority: Secondary Status: Acute (3) Fever Priority: Secondary Status: Resolved Qualifiers: Fever type: due to other condition Qualified Code(s): R50.81 - Fever presenting with conditions classified elsewhere Hospital course: Mr. Chavez is a 62 year old male Discharge discussed with: patient - Time Spent with Patient Total time spent providing and/or coordinating discharge services: Less than 30 minutes (20 min) - Discharge Medications Home Medications: Donepezil HCl [Aricept] 10 mg PO HS 03/05/17 [History] Paliperidone Palmitate [Invega Sustenna] 117 mg IM Q4W 04/26/18 [History] Allergies/Adverse Reactions: 3 Allergy/AdvReac Type Severity Reaction Status Date / Time trazodone Allergy Mild dizzinesss Verified 05/25/18 01:42 Date of admission: 05/24/18 23:31 Primary care physician: Roger Toro MD Discharging clinician: Freya Billings Anticipated date of discharge: 05/26/18 - Constitutional Vitals: Temp Pulse Resp BP Pulse Ox 98 F 65 18 113/68 94 05/26/18 06:51 05/26/18 06:51 05/26/18 06:51 05/26/18 06:51 05/26/18 06:51 General appearance: Present: cooperative, A&O X 3, pleasant, no acute distress, answers questions appropriately Exam: . - Respiratory Respiratory exam: Present: CTAB. Absent: accessory muscle use, rales, rhonchi, wheezes - Cardiovascular Cardiovascular exam: Present: RRR, +S1, +S2. Absent: diastolic murmur, gallop, rubs, systolic murmur - GI/Abdominal GI/Abdominal exam: Present: normal bowel sounds, soft, no peritoneal signs. Absent: distended, tenderness - Patient Status Disposition: Home, Self-Care Condition: Good Functional capacity at discharge: independent ambulation Overall status at discharge: patient is progressing back to baseline - Discharge Instructions Follow Up With: Roger Toro MD [Primary Care Provider] - (in 1-2 weeks) - Diet and Activity Activity: increase activity as tolerated Diet: advance to your usual diet, low fat, low cholesterol
== END 2018-05-26 10:30 | disposition home or self-care (01) ==
LOC: EMEROOARM 18:26 → 3ANU 18:26 → SUATTDRO 23:31 → 3ANU 05-25 00:25
PROVIDERS: ADMIT Pediatrics; ATTEND Internal Medicine